=== PATIENT | male | born 1975 | race African-American/Black ===

== ENCOUNTER 2018-12-09 17:46 | Inpatient (IN) | payer OTHER ==
[2018-12-09] MEDS ORDERED: ACETAMINOPHEN 325 MG TABLET PO ONE (18:13)
[2018-12-09] MEDS ORDERED: NORMAL SALINE 1000 ML 1,000 ML IV ONE ×2 (18:13→18:45)
[2018-12-09 18:43] LABS: ABSOLUTE LYMPHOCYTES (AUTO) 0.9 10^3/uL (0.5-4.7); ABSOLUTE MONOCYTES (AUTO) 1.4 10^3/uL (0.1-1.4); ABSOLUTE NEUT (AUTO) 13.8 10^3/uL (1.7-8.2); BASOPHILS % (AUTO) 0.1 % (0-2); HEMATOCRIT 17.2 % (37.9-51.0); LYMPHOCYTES % (AUTO) 5.8 % (13-45); MEAN CORPUSCULAR HEMOGLOBIN 23.7 pg (27.0-33.4); MEAN CORPUSCULAR HGB CONC 31.1 g/dL (32.0-36.0); MEAN CORPUSCULAR VOLUME 76 fl (80-97); MONOCYTES % (AUTO) 8.6 % (3-13); PLATELET COUNT 261 10^3/uL (150-450); RED BLOOD COUNT 2.26 10^6/uL (4.35-5.55); RED CELL DISTRIBUTION WIDTH 19.7 % (11.5-14.0); SEGMENTED NEUTROPHILS % (AUTO) 85.5 % (42-78); TOTAL CELLS COUNTED % (AUTO) 100 %; WHITE BLOOD COUNT 16.2 10^3/uL (4.0-10.5)
[2018-12-09] MEDS ORDERED: VANCOMYCIN HCL INJ 1000 MG VIAL IV ONE (18:45)
[2018-12-09] MEDS ORDERED: PIPERACILLIN/TAZOBACTAM 4.5 GM VIAL IV ONE (18:45)
[2018-12-09 18:47] LABS: HEMOGLOBIN 5.4 g/dL (13.5-17.0)
[2018-12-09] MEDS ORDERED: NORMAL SALINE 250 ML IV PRN (18:49)
--- NOTE | 2018-12-09 18:51 | ER Document Report ---
ED General - General Chief Complaint: Foot Pain Stated Complaint: LEFT FOOT PAIN Time Seen by Provider: 12/09/18 18:13 - HPI Notes: Patient is a 43-year-old male with a history of poorly controlled diabetes who presents to the emergency department for evaluation of fever and increased pain in his left foot. 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 He states that over the last month his foot has been incredibly swollen. Over the last 2 weeks he is felt ill, felt hot and cold. He said some nausea but no emesis. He is had increased pain and swelling in his left foot as well. He states that his sugar was "low today" at 125. - Related Data Allergies/Adverse Reactions: No Known Allergies Allergy (Verified 12/09/18 17:49) Past Medical History - General Information source: Patient - Social History Smoking Status: Never Smoker Chew tobacco use (# tins/day): No Frequency of alcohol use: None Drug Abuse: None Family History: Malignancy Patient has suicidal ideation: No Patient has homicidal ideation: No - Past Medical History Cardiac Medical History: Reports: Hx Hypertension Pulmonary Medical History: Reports: Hx Pneumonia Denies: Hx Tuberculosis Neurological Medical History: Denies: Hx Seizures Endocrine Medical History: Reports: Hx Diabetes Mellitus Type 2 - Insulin- dependent Renal/ Medical History: Denies: Hx Peritoneal Dialysis Past Surgical History: Reports: Hx Orthopedic Surgery - R Great toe removal August 2009. Denies: Hx Pacemaker - Immunizations Hx Diphtheria, Pertussis, Tetanus Vaccination: No Hx Pneumococcal Vaccination: 06/27/11 Review of Systems - Review of Systems Constitutional: See HPI EENT: No symptoms reported Cardiovascular: No symptoms reported Respiratory: No symptoms reported Gastrointestinal: No symptoms reported Genitourinary: No symptoms reported Musculoskeletal: See HPI Skin: See HPI Neurological/Psychological: No symptoms reported Physical Exam - Vital signs Vitals: BP Pulse Ox 126/71 H 99 12/09/18 18:00 12/09/18 18:00 - Notes Notes: This is a febrile, tachycardic 43-year-old male who appears his stated age in no acute distress. Vital signs reviewed, please refer to chart. Head is normocephalic, atraumatic. Pupils equal round, reactive to light. Neck is sup ple without meningismus. Heart is regular rate and rhythm. Lungs are clear to auscultation bilaterally. Abdomen is soft, nontender, normoactive bowel sounds throughout. Examination of the right lower extremity yields a BKA with callused and thickened skin, skin breakdown without significant surrounding induration, erythema, or fluctuance. Some tunneling noted. Examination of the left lower e xtremity examination of the left lower extremity yields a severe amount of edema to the entire left foot. He has an ulcerated area on his anterior ankle that is approximately 3 x 4 cm, multiple smaller ulcerations over the dorsum of the entire foot. It is extremely foul-smelling. He has diminished sensation to the entire area to light touch. There is chronic appearing skin thickening on the lateral aspect of the foot. Course - Re-evaluation Re-evalutation: 12/09/18 18:52 Patient presented to the emergency department for evaluation. In route via EMS, he was found to have a 101.6 temperature, a blood pressure 105/87, heart rate of 130. Sepsis protocol initiated. First blood result back was a hemoglobin of under 6. Blood blank orders placed, orders placed for transfusion of 2 units. It is clear that the patient's foot is severely infected. Cultures are pending, as is lactate. He is given Zosyn and vancomycin, we will continue to monitor. 12/09/18 21:41 Dr. Naranjo came and evaluated the patient. From a surgical standpoint he believes he is stable to stay in this facility, but of course not stable for surgery at this time. I spoke with Dr. Rain, he will come down and evaluate the patient for admission. - Vital Signs Vital signs: Temp Pulse Resp BP Pulse Ox 98.4 F 103 H 16 114/66 99 12/09/18 21:11 12/09/18 21:11 12/09/18 21:12 12/09/18 21:12 12/09/18 21:12 - Laboratory Result Diagrams: 12/09/18 18:07 12/09/18 18:07 Laboratory results interpreted by me: 12/09/18 12/09/18 12/09/18 18:07 18:07 18:07 WBC 16.2 H RBC 2.26 L Hgb 5.4 L Hct 17.2 L MCV 76 L MCH 23.7 L MCHC 31.1 L RDW 19.7 H Seg Neutrophils % 85.5 H Lymphocytes % 5.8 L Absolute Neutrophils 13.8 H PT 18.6 H Sodium 134.3 L Potassium 3.5 L BUN 22 H Glucose 138 H Total Bilirubin 2.8 H Direct Bilirubin 1.6 H Albumin 2.6 L Crossmatch 12/09/18 19:17 WBC RBC Hgb Hct MCV MCH MCHC RDW Seg Neutrophils % Lymphocytes % Absolute Neutrophils PT Sodium Potassium BUN Glucose Total Bilirubin Direct Bilirubin Albumin Crossmatch See Detail - Diagnostic Test Radiology reviewed: Reports reviewed Radiology results interpreted by me: 12/09/18 22:03 Chest X-Ray 12/09/18 18:44 IMPRESSION: NO ACUTE RADIOGRAPHIC FINDING IN THE CHEST. Foot X-Ray 12/09/18 18:44 IMPRESSION: Markedly abnormal appearance of the foot; the appearance of subcutaneous gas with extensive osseous erosions and periosteal reaction is cons istent with chronic osteomyelitis. - EKG Interpretation by Me Additional EKG results interpreted by me: 12/09/18 22:04 Extremely abnormal baseline, secondary to chills and rigors. Sinus mechanism with a rate of [address] bpm[address] Normal axis. Nonspecific ST changes. Again limited by baseline abnormalities. Discharge - Discharge Clinical Impression: Severe anemia Sepsis Qualifiers: Sepsis type: sepsis due to unspecified organism Sepsis acute organ dysfunction status: without acute organ dysfunction Qualified Code(s): A41.9 - Sepsis, unspecified organism Osteomyelitis Qualifiers: Osteomyelitis type: chronic, with draining sinus Osteomyelitis location: foot Laterality: left Qualified Code(s): M86.472 - Chronic osteomyelitis with draining sinus, left ankle and foot Condition: Stable Disposition: ADMITTED INPATIENT Admitting Provider: Briseyda (Hospitalist) Unit Admitted: [facility]
[2018-12-09 18:59] LABS: ALBUMIN 2.6 g/dL (3.5-5.0); ALKALINE PHOSPHATASE 42 U/L (38-126); ANION GAP 12 (5-19); ASPARTATE AMINO TRANSFERASE 40 U/L (17-59); BILIRUBIN,DIRECT 1.6 mg/dL (0.0-0.4); BILIRUBIN,TOTAL 2.8 mg/dL (0.2-1.3); BLOOD UREA NITROGEN 22 mg/dL (7-20); CALCIUM 8.6 mg/dL (8.4-10.2); CARBON DIOXIDE 22 mmol/L (22-30); CHLORIDE 100 mmol/L (98-107); GLUCOSE 138 mg/dL (75-110); POTASSIUM 3.5 mmol/L (3.6-5.0); TOTAL PROTEIN 7.2 g/dL (6.3-8.2)
[2018-12-09 19:01] LABS: INTERNATIONAL RATION (INR) 1.54; PROTHROMBIN TIME 18.6 SEC (11.4-15.4)
--- NOTE | 2018-12-09 19:26 | RADIOLOGY REPORT (SQ) ---
EXAM DESCRIPTION: FOOT LEFT 2 VIEWS COMPLETED DATE/TIME: 12/09/2018 7:03 pm REASON FOR STUDY: eval for osteo COMPARISON: None. NUMBER OF VIEWS: Two views. TECHNIQUE: AP and lateral radiographic images acquired of the left foot. LIMITATIONS: None. FINDINGS: MINERALIZATION: Normal. BONES: There is extensive erosion of the 1st ray to include the base and head of the 1st metatarsal w ith no visualized great toe phalanges (possibly on the basis of previous amputation. Robust perioste al reaction is seen about the residual 1st metatarsal. Abnormal morphology of the 5th metatarsal may be posttraumatic. Periosteal reaction is seen of the 2nd and 4th metatarsal diaphyses. Significant tarsal erosions. JOINTS: The visualized joint spaces appear narrowed. SOFT TISSUES: Diffuse circumferential soft tissue edema with subcutaneous gas. OTHER: No other significant finding. IMPRESSION: Markedly abnormal appearance of the foot; the appearance of subcutaneous gas with extens ju osseous erosions and periosteal reaction is consistent with chronic osteomyelitis. TECHNICAL DOCUMENTATION: JOB ID: [id number] [employer]- All Rights Reserved Reading location - IP/workstation name: [email or web address]
--- NOTE | 2018-12-09 19:33 | RADIOLOGY REPORT (SQ) ---
EXAM DESCRIPTION: CHEST SINGLE VIEW COMPLETED DATE/TIME: 12/09/2018 7:03 pm REASON FOR STUDY: sepsis eval COMPARISON: 06/18/2011 EXAM PARAMETERS: NUMBER OF VIEWS: One view. TECHNIQUE: Single frontal radiographic view of the chest acquired. RADIATION DOSE: NA LIMITATIONS: None. FINDINGS: LUNGS AND PLEURA: No opacities, masses or pneumothorax. No pleural effusion. MEDIASTINUM AND HILAR STRUCTURES: No masses. Contour normal. HEART AND VASCULAR STRUCTURES: Heart normal in size. Normal vasculature. BONES: No acute findings. HARDWARE: None in the chest. OTHER: No other significant finding. IMPRESSION: NO ACUTE RADIOGRAPHIC FINDING IN THE CHEST. TECHNICAL DOCUMENTATION: JOB ID: [id number] [employer]- All Rights Reserved Reading location - IP/workstation name: [email or web address]
[2018-12-09 19:37] LABS: VENOUS BLOOD BASE EXCESS -1.2 mmol/L; VENOUS BLOOD HCO3 23.2 mmol/L (20-32); VENOUS BLOOD PCO2 37.5 mmHg (35-63); VENOUS BLOOD PH 7.41 (7.30-7.42)
--- NOTE | 2018-12-09 21:56 | PDOC CONSULTATION ---
Consultation Consult Date: 12/09/18 Provider Consulted: SYLVIA ZAPATA Consult reason:: Evaluate left foot infection and diabetic patient History of Present Illness Patient complains of: Generalized weakness and fever History of Present Illness: HANNAH CRUZ JR is a 43 year old male diabetic with history of right BKA due to diabetic foot infection in the past. He uses a right-sided prosthetic leg. He noted a cut to the bottom of his left foot couple of months ago that he self treated with antibiotic ointment. In the past couple of weeks he has noticed marked swelling of his left foot along with serous drainage. Patient has had profound diarrhea over the past couple weeks. He has been experiencing fever with generalized weakness. He denies any blood per rectum. He denies any hematemesis. He denies any abdominal pain. he denies any alcohol abuse. Patient states that he has been noted with anemia in the past. Past Medical History Cardiac Medical History: Reports: Hypertension Pulmonary Medical History: Reports: Pneumonia Denies: Tuberculosis Neurological Medical History: Denies: Seizures Endocrine Medical History: Reports: Diabetes Mellitus Type 2 - Insulin-dependent Hematology: Reports: Anemia Past Surgical History Past Surgical History: Reports: Orthopedic Surgery - Right BKA several years ago. Left great toe amputation in the remote past. Denies: Pacemaker Social History Smoking Status: Never Smoker Frequency of Alcohol Use: None Hx Recreational Drug Use: No Hx Prescription Drug Abuse: No Family History Family History: Malignancy Parental Family History Reviewed: No Children Family History Reviewed: No Sibling(s) Family History Reviewed.: No Medication/Allergy Home Medications: Ferrous Sulfate [Feosol 325 Mg Tablet] 325 mg PO BID 06/27/11 Hum Insulin NPH/Reg Insulin Hm [Humulin 70-30 Pen] 20 unit SQ BID 06/27/11 Hydrocodone Bit/Acetaminophen [Vicodin 5-500 mg Tablet] 1 tab PO Q6 PRN 06/27/11 Insulin Lispro [Humalog] 0 unit SQ ACHS 06/27/11 Lisinopril [Prinivil] 20 mg PO DAILY 06/27/11 Pepcid 20 mg PO DAILY 06/29/11 Allergies/Adverse Reactions: No Known Allergies Allergy (Verified 12/09/18 17:49) Physical Exam General appearance: PRESENT: cooperative, disheveled, other - Patient appears ill but is able to provide a good history. Eye exam: PRESENT: conjunctiva pink Respiratory exam: PRESENT: clear to auscultation gino Cardiovascular exam: PRESENT: tachycardia GI/Abdominal exam: PRESENT: other - Soft, nondistended, nontender to palpation. Extremities exam: PRESENT: other - Right BKA stump with thickened skin and lichenification. Left foot with marked diffuse swelling with skin thickening extending to the lower leg. Several ulcerations weeping serous fluid. The foot is warm. Patient is status post left great toe amputation. Neurological exam: PRESENT: oriented to person, oriented to place, oriented to time, oriented to situation Psychiatric exam: PRESENT: anxious Results Laboratory Results: 12/09/18 18:07 12/09/18 18:07 12/09/18 12/09/18 12/09/18 18:07 18:07 19:17 WBC 16.2 H RBC 2.26 L Hgb 5.4 L Hct 17.2 L MCV 76 L MCH 23.7 L MCHC 31.1 L RDW 19.7 H Plt Count 261 Seg Neutrophils % 85.5 H Lymphocytes % 5.8 L Monocytes % 8.6 Eosinophils % 0.0 Basophils % 0.1 Absolute Neutrophils 13.8 H Absolute Lymphocytes 0.9 Absolute Monocytes 1.4 Absolute Eosinophils 0.0 Absolute Basophils 0.0 VBG pH VBG pCO2 VBG HCO3 VBG Base Excess Sodium 134.3 L Potassium 3.5 L Chloride 100 Carbon Dioxide 22 Anion Gap 12 BUN 22 H Creatinine 1.09 Est GFR ( Amer) > 60 Est GFR (Non-Af Amer) > 60 Glucose 138 H Lactic Acid 1.9 Calcium 8.6 Total Bilirubin 2.8 H AST 40 Alkaline Phosphatase 42 Total Protein 7.2 Albumin 2.6 L Blood Type Antibody Screen 12/09/18 12/09/18 19:17 19:17 WBC RBC Hgb Hct MCV MCH MCHC RDW Plt Count Seg Neutrophils % Lymphocytes % Monocytes % Eosinophils % Basophils % Absolute Neutrophils Absolute Lymphocytes Absolute Monocytes Absolute Eosinophils Absolute Basophils VBG pH 7.41 VBG pCO2 37.5 VBG HCO3 23.2 VBG Base Excess -1.2 Sodium Potassium Chloride Carbon Dioxide Anion Gap BUN Creatinine Est GFR ( Amer) Est GFR (Non-Af Amer) Glucose Lactic Acid Calcium Total Bilirubin AST Alkaline Phosphatase Total Protein Albumin Blood Type A POSITIVE Antibody Screen NEGATIVE Impressions: Chest X-Ray 12/09/18 18:44 IMPRESSION: NO ACUTE RADIOGRAPHIC FINDING IN THE CHEST. Foot X-Ray 12/09/18 18:44 IMPRESSION: Markedly abnormal appearance of the foot; the appearance of subcutaneous gas with extensive osseous erosions and periosteal reaction is consistent with chronic osteomyelitis. Assessment & Plan - Diagnosis (1) Osteomyelitis Qualifiers: Osteomyelitis type: chronic, with draining sinus Osteomyelitis location: foot Laterality: left Qualified Code(s): M86.472 - Chronic osteomyelitis with draining sinus, left ankle and foot Is this a current diagnosis for this admission?: Yes Plan: Of the left foot. Acute process superimposed on chronic process. With the appearance of the foot I do not think that his foot is salvageable. Patient will require a left below the knee amputation and with his chronic skin changes of his lower leg, stump will be difficult to heal. Prior to his surgery he will need aggressive resuscitation with transfusions, antibiotics, fluid resuscitation. Patient will be admitted to the hospitalist service for resuscitation tonight followed by surgery tomorrow.
[2018-12-09] MEDS ORDERED: ACETAMINOPHEN 325 MG TABLET PO PRN (22:13)
[2018-12-09] MEDS ORDERED: GLUCAGON,HUMAN RECOMB 1 MG INJ IM PRN (22:19)
[2018-12-09] MEDS ORDERED: DEXTROSE 40% GEL 15 GM TUBE PO PRN ×2 (22:19)
[2018-12-09] MEDS ORDERED: DEXTROSE 50%-WATER 25 GM/50 ML DISP.SYRIN IV PRN ×2 (22:19)
[2018-12-09] MEDS ORDERED: VANCOMYCIN HCL 0 MG in DEXTROSE 5%-WATER 250 ML IV NR (22:30)
[2018-12-09] MEDS ORDERED: PIPERACILLIN/TAZOBACTAM 3.375 GM VIAL IV PRN (22:37)
[2018-12-09] MEDS ORDERED: VANCOMYCIN HCL INJ 1000 MG VIAL IV PRN (22:37)
--- NOTE | 2018-12-09 22:39 | PDOC H&P ---
History of Present Illness Admission Date/PCP: 12/09/18 22:15 History of Present Illness: HANNAH CRUZ JR is a 43 year old male who is a poor historian with a history of insulin-dependent diabetes who was not an ideal regimen and who also has a history of a right BKA 7 years ago because his foot got infected who presents with several weeks of left foot swelling. He said that he had a cut on his foot they noticed a couple of months ago and he tried to treated himself with antibiotic ointment. It is progressed since then. He has had a lot of swelling in that foot. He has multiple oozing ulcers on the foot. He has diminished sensation in the foot. He apparently had a fever for EMS greater than 101 F. His hemoglobin was also noted to be substantially low, but he denies any history of melena, hematochezia, hematemesis, hematuria, or nosebleed. He said he is also been having a lot of diarrhea recently. He has not noted it to be particularly watery or bloody, just very loose. He does not have any abdominal pain. Surgery has already seen him in the ED. He is being admitted for stabilization prior to surgery. Past Medical History Cardiac Medical History: Reports: Hypertension Pulmonary Medical History: Reports: Pneumonia Denies: Tuberculosis Neurological Medical History: Denies: Seizures Endocrine Medical History: Reports: Diabetes Mellitus Type 2 - Insulin-dependent Hematology: Reports: Anemia Past Surgical History Past Surgical History: Reports: Orthopedic Surgery - R Great toe removal August 2009 Denies: Pacemaker Social History Smoking Status: Never Smoker Frequency of Alcohol Use: None Hx Recreational Drug Use: No Hx Prescription Drug Abuse: No Family History Family History: Malignancy Parental Family History Reviewed: Yes - Said he thinks 1 of his parents had diabetes Children Family History Reviewed: NA Sibling(s) Family History Reviewed.: Unknown Medication/Allergy Home Medications: Ferrous Sulfate [Feosol 325 Mg Tablet] 325 mg PO BID 06/27/11 Hum Insulin NPH/Reg Insulin Hm [Humulin 70-30 Pen] 20 unit SQ BID 06/27/11 Hydrocodone Bit/Acetaminophen [Vicodin 5-500 mg Tablet] 1 tab PO Q6 PRN 06/27/11 Insulin Lispro [Humalog] 0 unit SQ ACHS 06/27/11 Lisinopril [Prinivil] 20 mg PO DAILY 06/27/11 Pepcid 20 mg PO DAILY 06/29/11 Allergies/Adverse Reactions: No Known Allergies Allergy (Verified 12/09/18 17:49) Review of Systems All systems: reviewed and no additional remarkable complaints except as stated - All systems were reviewed and were negative except as noted in the HPI Physical Exam Vital Signs: Temp Pulse Resp BP Pulse Ox 98.4 F 101 H 20 123/77 100 12/09/18 21:11 12/09/18 22:20 12/09/18 22:20 12/09/18 22:01 12/09/18 22:20 Intake & Output 12/08/18 12/09/18 12/10/18 06:59 06:59 06:59 Intake Total 1000 Balance 1000 General appearance: PRESENT: cooperative, disheveled, mild distress, obese Head exam: PRESENT: atraumatic, normocephalic Eye exam: PRESENT: conjunctiva pale, EOMI, PERRLA. ABSENT: conjunctival injection, nystagmus, scleral icterus Ear exam: PRESENT: normal external ear exam Mouth exam: PRESENT: dry mucosa, neck supple Teeth exam: PRESENT: poor dentation Throat exam: ABSENT: post pharyngeal erythema Neck exam: PRESENT: full ROM. ABSENT: carotid bruit, JVD, lymphadenopathy, meningismus, tenderness, thyromegaly Respiratory exam: PRESENT: clear to auscultation gino, symmetrical, unlabored. ABSENT: accessory muscle use, chest wall tenderness, crackles, prolonged expiratory phas, rhonchi, tachypnea, wheezes Cardiovascular exam: PRESENT: +S1, +S2, tachycardia Pulses: PRESENT: normal carotid pulses Vascular exam: ABSENT: normal capillary refill - Delayed, left foot was warm GI/Abdominal exam: PRESENT: normal bowel sounds, soft. ABSENT: distended, guarding, rebound, tenderness Extremities exam: PRESENT: other - Right lower extremity has unremarkable BKA stump. Left lower extremity has thickening of the skin over the left foot that extends proximally to the ankle up the left leg. The right great toe has been surgically removed. There is profound swelling of the left foot. There are multiple ulcerated and weeping lesions of the left foot. He could not tell when I was touching his foot. Musculoskeletal exam: PRESENT: deformity - Previously mentioned BKA, right great toe amputation, and profound swelling of the left foot. ABSENT: tenderness Neurological exam: PRESENT: alert, awake, oriented to person, oriented to place, oriented to situation, CN II-XII grossly intact, motor sensory deficit - Diminished sensation in the left foot and left leg below the knee Psychiatric exam: PRESENT: flat affect Skin exam: PRESENT: erythema - Left foot, warm - Left foot, other - Previously mentioned numerous ulcerated places with weeping lesions on the left foot along with the chronic appearing skin changes on aspects of the left foot and the left leg below the knee Results Laboratory Results: 12/09/18 18:07 12/09/18 18:07 12/09/18 12/09/18 12/09/18 18:07 18:07 19:17 WBC 16.2 H RBC 2.26 L Hgb 5.4 L Hct 17.2 L MCV 76 L MCH 23.7 L MCHC 31.1 L RDW 19.7 H Plt Count 261 Seg Neutrophils % 85.5 H Lymphocytes % 5.8 L Monocytes % 8.6 Eosinophils % 0.0 Basophils % 0.1 Absolute Neutrophils 13.8 H Absolute Lymphocytes 0.9 Absolute Monocytes 1.4 Absolute Eosinophils 0.0 Absolute Basophils 0.0 VBG pH VBG pCO2 VBG HCO3 VBG Base Excess Sodium 134.3 L Potassium 3.5 L Chloride 100 Carbon Dioxide 22 Anion Gap 12 BUN 22 H Creatinine 1.09 Est GFR ( Amer) > 60 Est GFR (Non-Af Amer) > 60 Glucose 138 H Lactic Acid 1.9 Calcium 8.6 Total Bilirubin 2.8 H AST 40 Alkaline Phosphatase 42 Total Protein 7.2 Albumin 2.6 L Blood Type Antibody Screen 12/09/18 12/09/18 19:17 19:17 WBC RBC Hgb Hct MCV MCH MCHC RDW Plt Count Seg Neutrophils % Lymphocytes % Monocytes % Eosinophils % Basophils % Absolute Neutrophils Absolute Lymphocytes Absolute Monocytes Absolute Eosinophils Absolute Basophils VBG pH 7.41 VBG pCO2 37.5 VBG HCO3 23.2 VBG Base Excess -1.2 Sodium Potassium Chloride Carbon Dioxide Anion Gap BUN Creatinine Est GFR ( Amer) Est GFR (Non-Af Amer) Glucose Lactic Acid Calcium Total Bilirubin AST Alkaline Phosphatase Total Protein Albumin Blood Type A POSITIVE Antibody Screen NEGATIVE Impressions: Chest X-Ray 12/09/18 18:44 IMPRESSION: NO ACUTE RADIOGRAPHIC FINDING IN THE CHEST. Foot X-Ray 12/09/18 18:44 IMPRESSION: Markedly abnormal appearance of the foot; the appearance of subcutaneous gas with extensive osseous erosions and periosteal reaction is consistent with chronic osteomyelitis. Assessment and Plan - Diagnosis (1) Sepsis Qualifiers: Sepsis type: sepsis due to unspecified organism Sepsis acute organ dysfunction status: without acute organ dysfunction Qualified Code(s): A41.9 - Sepsis, unspecified organism Is this a current diagnosis for this admission?: Yes Plan: He got his fluid bolus in the ER and has been started on vancomycin and Zosyn. Blood cultures have been obtained. This is almost certainly due to a chronic progressive long-standing infection in the left foot. We will admit him to IM. No signs of acute organ dysfunction at this time. His INR was elevated but it was also elevated about the same level, around 1.5, when he was here in 2011. (2) Osteomyelitis Qualifiers: Osteomyelitis type: chronic, with draining sinus Osteomyelitis location: foot Laterality: left Qualified Code(s): M86.472 - Chronic osteomyelitis with draining sinus, left ankle and foot Is this a current diagnosis for this admission?: Yes Plan: The foot definitely does not look salvageable. I was initially going to order an MRI of the foot as well as vascular studies, but on further consideration I do not think it would change his management. Surgery is planning on taking him to the OR for an amputation once he is more medically stable. He is on antibiotics for the meantime until the infected material is removed. (3) Severe anemia Is this a current diagnosis for this admission?: Yes Plan: His MCV is low and he looks iron deficient. He has been noted to be anemic at this level before. He has had some blood ordered. He denies any evidence of bleeding. We will send a stool sample for occult blood. We will continue to monitor his hemoglobin and look for evidence of acute bleeding, but he has none at this time. (4) Diarrhea Qualifiers: Diarrhea type: unspecified type Qualified Code(s): R19.7 - Diarrhea, unspecified Is this a current diagnosis for this admission?: Yes Plan: We are going to send off a sample for C. difficile. - Time Time Spent with patient: 35 or more minutes - Inpatient Certification Based on my medical assessment, after consideration of the patient's comorbidities, presenting symptoms, or acuity I expect that the services needed warrant INPATIENT care.: Yes I certify that my determination is in accordance with my understanding of Medicare's requirements for reasonable and necessary INPATIENT services [42 CFR 412.3e].: Yes Medical Necessity: Need Close Monitoring Due to Risk of Patient Decompensation, Need For IV Fluids, Need For Continuous Telemetry Monitoring, Need for IV Antibiotics, Need for Surgery
[2018-12-09 22:43] LABS: AMORPHOUS SEDIMENT,URINE 1+ /HPF; APPEARANCE,URINE TURBID; BILIRUBIN,URINE SMALL (NEGATIVE); COLOR,URINE AMBER; GLUCOSE, URINE NEGATIVE (NEGATIVE); KETONES,URINE NEGATIVE (NEGATIVE); LEUKOCYTE ESTERASE,URINE NEGATIVE (NEGATIVE); NITRITE,URINE NEGATIVE (NEGATIVE); PROTEIN,URINE 100 mg/dL (NEGATIVE); URINE SPECIFIC GRAVITY 1.024
[2018-12-09] MEDS: NORMAL SALINE 1000 ML 1,000 ML IV PRN (23:32)
[2018-12-10] MEDS: ONDANSETRON HCL INJ/PF 4 MG/2 ML SDV IV PRN (01:49)
[2018-12-10] MEDS: PIPERACILLIN SODIUM/TAZOBACTAM 3.375 GM in NORMAL SALINE 100 ML IV SCH ×5 (01:51→23:42)
[2018-12-10] MEDS ORDERED: GLUCAGON,HUMAN RECOMB 1 MG INJ SUBCUT PRN (04:46)
[2018-12-10] MEDS ORDERED: DEXTROSE 40% GEL 15 GM TUBE PO PRN ×2 (04:46)
[2018-12-10] MEDS ORDERED: DEXTROSE 50%-WATER 25 GM/50 ML DISP.SYRIN IV PRN ×2 (04:46)
[2018-12-10] MEDS: HEPARIN SOD (PORCINE) 5,000 UNIT/ML 1 ML VIAL SUBCUT SCH ×3 (05:37→21:23)
[2018-12-10] MEDS ORDERED: VANCOMYCIN HCL 2,000 MG in DEXTROSE 5%-WATER 500 ML IV ONE (07:30)
[2018-12-10 08:48] LABS: HEMATOCRIT 25.9 % (37.9-51.0); MEAN CORPUSCULAR HEMOGLOBIN 24.7 pg (27.0-33.4); MEAN CORPUSCULAR HGB CONC 31.7 g/dL (32.0-36.0); MEAN CORPUSCULAR VOLUME 78 fl (80-97); PLATELET COUNT 302 10^3/uL (150-450); RED BLOOD COUNT 3.32 10^6/uL (4.35-5.55); RED CELL DISTRIBUTION WIDTH 19.4 % (11.5-14.0); WHITE BLOOD COUNT 19.9 10^3/uL (4.0-10.5)
[2018-12-10] MEDS: VANCOMYCIN HCL 1,250 MG in DEXTROSE 5%-WATER 250 ML IV SCH ×3 (08:49→21:23)
[2018-12-10 08:50] LABS: HEMOGLOBIN 8.2 g/dL (13.5-17.0)
[2018-12-10 09:08] LABS: ANION GAP 11 (5-19); BLOOD UREA NITROGEN 21 mg/dL (7-20); CALCIUM 8.5 mg/dL (8.4-10.2); CARBON DIOXIDE 21 mmol/L (22-30); CHLORIDE 105 mmol/L (98-107); GLUCOSE 141 mg/dL (75-110); POTASSIUM 3.4 mmol/L (3.6-5.0)
--- NOTE | 2018-12-10 09:15 | PDOC PROGRESS REPORT ---
Subjective Progress Note for:: 12/10/18 Subjective:: This is a 43-year-old male with a severe diabetic foot infection of the left foot. He has purulent material and gas extending from the tip of the foot all the way back to the ankle. The patient reports left foot pain, malaise, fatigue, subjective fevers and chills. He denies chest pain, shortness of breath, headache, blurry vision, melena, hematochezia, hematemesis, abdominal pain. Reason For Visit: SEPSIS, LLE OSTEMEYELITIS, ANEMIA Physical Exam Vital Signs: Temp Pulse Resp BP Pulse Ox 98.4 F 104 H 16 127/74 H 98 12/10/18 05:30 12/10/18 07:00 12/10/18 05:30 12/10/18 05:30 12/10/18 05:30 Intake & Output 12/09/18 12/10/18 12/11/18 06:59 06:59 06:59 Intake Total 2800 Output Total 400 Balance 2400 Weight 116.9 kg General appearance: PRESENT: obese Head exam: PRESENT: atraumatic, normocephalic Eye exam: PRESENT: EOMI, PERRLA Mouth exam: PRESENT: neck supple Teeth exam: PRESENT: poor dentation Neck exam: ABSENT: meningismus, tenderness, thyromegaly, tracheal deviation Respiratory exam: PRESENT: unlabored. ABSENT: chest wall tenderness, wheezes Cardiovascular exam: PRESENT: tachycardia - mild Pulses: PRESENT: normal radial pulses GI/Abdominal exam: PRESENT: soft. 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 Erythematous, crepitance noted, purulent drainage noted of the left remaining foot. Erythema and crepitance extends up to the ankle. Neurological exam: PRESENT: alert, awake, oriented to person, oriented to place, oriented to time, oriented to situation Psychiatric exam: PRESENT: depressed. ABSENT: agitated, anxious Focused psych exam: ABSENT: delusional Skin exam: PRESENT: erythema. ABSENT: cyanosis, jaundice Results Laboratory Results: 12/10/18 08:30 12/09/18 12/09/18 12/09/18 18:07 18:07 19:17 WBC 16.2 H RBC 2.26 L Hgb 5.4 L Hct 17.2 L MCV 76 L MCH 23.7 L MCHC 31.1 L RDW 19.7 H Plt Count 261 Seg Neutrophils % 85.5 H Lymphocytes % 5.8 L Monocytes % 8.6 Eosinophils % 0.0 Basophils % 0.1 Absolute Neutrophils 13.8 H Absolute Lymphocytes 0.9 Absolute Monocytes 1.4 Absolute Eosinophils 0.0 Absolute Basophils 0.0 VBG pH VBG pCO2 VBG HCO3 VBG Base Excess Sodium 134.3 L Potassium 3.5 L Chloride 100 Carbon Dioxide 22 Anion Gap 12 BUN 22 H Creatinine 1.09 Est GFR ( Amer) > 60 Est GFR (Non-Af Amer) > 60 Glucose 138 H Lactic Acid 1.9 Calcium 8.6 Total Bilirubin 2.8 H AST 40 Alkaline Phosphatase 42 Total Protein 7.2 Albumin 2.6 L Urine Color Urine Appearance Urine pH Ur Specific [place] Urine Protein Urine Glucose (UA) Urine Ketones Urine Blood Urine Nitrite Ur Leukocyte Esterase Stool Occult Blood Blood Type Antibody Screen 12/09/18 12/09/18 12/09/18 19:17 19:17 22:17 WBC RBC Hgb Hct MCV MCH MCHC RDW Plt Count Seg Neutrophils % Lymphocytes % Monocytes % Eosinophils % Basophils % Absolute Neutrophils Absolute Lymphocytes Absolute Monocytes Absolute Eosinophils Absolute Basophils VBG pH 7.41 VBG pCO2 37.5 VBG HCO3 23.2 VBG Base Excess -1.2 Sodium Potassium Chloride Carbon Dioxide Anion Gap BUN Creatinine Est GFR ( Amer) Est GFR (Non-Af Amer) Glucose Lactic Acid Calcium Total Bilirubin AST Alkaline Phosphatase Total Protein Albumin Urine Color [place] Urine Appearance TURBID Urine pH 5.0 Ur Specific [place] 1.024 Urine Protein 100 H Urine Glucose (UA) NEGATIVE Urine Ketones NEGATIVE Urine Blood SMALL H Urine Nitrite NEGATIVE Ur Leukocyte Esterase NEGATIVE Stool Occult Blood Blood Type A POSITIVE Antibody Screen NEGATIVE 12/09/18 12/10/18 22:17 08:30 WBC 19.9 H RBC 3.32 L Hgb 8.2 L D Hct 25.9 L MCV 78 L MCH 24.7 L MCHC 31.7 L RDW 19.4 H Plt Count 302 Seg Neutrophils % Lymphocytes % Monocytes % Eosinophils % Basophils % Absolute Neutrophils Absolute Lymphocytes Absolute Monocytes Absolute Eosinophils Absolute Basophils VBG pH VBG pCO2 VBG HCO3 VBG Base Excess Sodium Potassium Chloride Carbon Dioxide Anion Gap BUN Creatinine Est GFR ( Amer) Est GFR (Non-Af Amer) Glucose Lactic Acid Calcium Total Bilirubin AST Alkaline Phosphatase Total Protein Albumin Urine Color Urine Appearance Urine pH Ur Specific [place] Urine Protein Urine Glucose (UA) Urine Ketones Urine Blood Urine Nitrite Ur Leukocyte Esterase Stool Occult Blood NEGATIVE Blood Type Antibody Screen Impressions: Chest X-Ray 12/09/18 18:44 IMPRESSION: NO ACUTE RADIOGRAPHIC FINDING IN THE CHEST. Foot X-Ray 12/09/18 18:44 IMPRESSION: Markedly abnormal appearance of the foot; the appearance of subcutaneous gas with extensive osseous erosions and periosteal reaction is consistent with chronic osteomyelitis. Assessment & Plan - Diagnosis (1) Diabetic foot infection Is this a current diagnosis for this admission?: Yes (2) Osteomyelitis Qualifiers: Osteomyelitis type: chronic, with draining sinus Osteomyelitis location: fo ot Laterality: left Qualified Code(s): M86.472 - Chronic osteomyelitis with draining sinus, left ankle and foot Is this a current diagnosis for this admission?: Yes - Plan Summary Plan Summary: 43 y/o M with a severe diabetic foot infection. He has purulent material and cre pitance throughout the remaining foot. I have recommended BKA to resolve his sepsis. The pt has agreed to this. Risks/benefits discussed, informed consent obtained, and all questions answered.
[2018-12-10] MEDS ORDERED: HYDROMORPHONE HCL INJ/PF 2 MG/ML AMPULE IV ONE (10:45)
[2018-12-10] MEDS: NORMAL SALINE 1000 ML 1,000 ML IV PRN (10:46)
--- NOTE | 2018-12-10 11:06 | PDOC PROGRESS REPORT ---
Subjective Progress Note for:: 12/10/18 Subjective:: This is unfortunate 43 years old black male patient with past medical history of hypertension, obesity, type 2 diabetes mellitus, anemia presented with chief complaint of left foot pain and swelling. Patient reports this about 2 months ago he had a small cut and he treated himself with topical antibiotics. Of note patient had right BKA about 7 years ago. He states the wound is progressively increasing and draining. Patient has leukocytosis and fever of 101. X-ray of the foot reported as markedly abnormal appearance of the foot; the appearance of subcutaneous gas with extensive osseous erosions and periosteal reaction is consistent with chronic osteomyelitis. Clinically looks patient has acute on chronic osteomyelitis. Because of the fever and leukocytosis. Patient evaluated by surgical team and does not seem medical management will salvage the left foot and recommended left BKA. Patient also found to have profound anemia with hemoglobin of 5.4 for which she transfused with 2 units of packed RBC. Reason For Visit: SEPSIS, LLE OSTEMEYELITIS, ANEMIA Physical Exam Vital Signs: Temp Pulse Resp BP Pulse Ox 98.4 F 104 H 16 127/74 H 98 12/10/18 05:30 12/10/18 07:00 12/10/18 05:30 12/10/18 05:30 12/10/18 05:30 Intake & Output 12/09/18 12/10/18 12/11/18 06:59 06:59 06:59 Intake Total 2800 Output Total 400 Balance 2400 Weight 116.9 kg General appearance: PRESENT: no acute distress Head exam: PRESENT: atraumatic Mouth exam: PRESENT: dry mucosa Teeth exam: PRESENT: poor dentation Neck exam: ABSENT: carotid bruit, JVD, lymphadenopathy, thyromegaly Respiratory exam: PRESENT: clear to auscultation gino. ABSENT: rales, rhonchi, wheezes Cardiovascular exam: PRESENT: RRR. ABSENT: diastolic murmur, rubs, systolic murmur GI/Abdominal exam: PRESENT: normal bowel sounds, soft. ABSENT: distended, guarding, mass, organolmegaly, rebound, tenderness Neurological exam: PRESENT: alert, awake, oriented to person, oriented to place, oriented to time, oriented to situation Psychiatric exam: PRESENT: depressed Results Laboratory Results: 12/10/18 08:30 12/10/18 08:30 0812/09/18 12/09/18 18:07 18:07 19:17 WBC 16.2 H RBC 2.26 L Hgb 5.4 L Hct 17.2 L MCV 76 L MCH 23.7 L MCHC 31.1 L RDW 19.7 H Plt Count 261 Seg Neutrophils % 85.5 H Lymphocytes % 5.8 L Monocytes % 8.6 Eosinophils % 0.0 Basophils % 0.1 Absolute Neutrophils 13.8 H Absolute Lymphocytes 0.9 Absolute Monocytes 1.4 Absolute Eosinophils 0.0 Absolute Basophils 0.0 VBG pH VBG pCO2 VBG HCO3 VBG Base Excess Sodium 134.3 L Potassium 3.5 L Chloride 100 Carbon Dioxide 22 Anion Gap 12 BUN 22 H Creatinine 1.09 Est GFR ( Amer) > 60 Est GFR (Non-Af Amer) > 60 Glucose 138 H Lactic Acid 1.9 Calcium 8.6 Total Bilirubin 2.8 H AST 40 Alkaline Phosphatase 42 Total Protein 7.2 Albumin 2.6 L Urine Color Urine Appearance Urine pH Ur Specific [place] Urine Protein Urine Glucose (UA) Urine Ketones Urine Blood Urine Nitrite Ur Leukocyte Esterase Stool Occult Blood Blood Type Antibody Screen 12/09/18 12/09/18 12/09/18 19:17 19:17 22:17 WBC RBC Hgb Hct MCV MCH MCHC RDW Plt Count Seg Neutrophils % Lymphocytes % Monocytes % Eosinophils % Basophils % Absolute Neutrophils Absolute Lymphocytes Absolute Monocytes Absolute Eosinophils Absolute Basophils VBG pH 7.41 VBG pCO2 37.5 VBG HCO3 23.2 VBG Base Excess -1.2 Sodium Potassium Chloride Carbon Dioxide Anion Gap BUN Creatinine Est GFR ( Amer) Est GFR (Non-Af Amer) Glucose Lactic Acid Calcium Total Bilirubin AST Alkaline Phosphatase Total Protein Albumin Urine Color [place] Urine Appearance TURBID Urine pH 5.0 Ur Specific [place] 1.024 Urine Protein 100 H Urine Glucose (UA) NEGATIVE Urine Ketones NEGATIVE Urine Blood SMALL H Urine Nitrite NEGATIVE Ur Leukocyte Esterase NEGATIVE Stool Occult Blood Blood Type A POSITIVE Antibody Screen NEGATIVE 12/09/18 12/10/18 12/10/18 22:17 08:30 08:30 WBC 19.9 H RBC 3.32 L Hgb 8.2 L D Hct 25.9 L MCV 78 L MCH 24.7 L MCHC 31.7 L RDW 19.4 H Plt Count 302 Seg Neutrophils % Lymphocytes % Monocytes % Eosinophils % Basophils % Absolute Neutrophils Absolute Lymphocytes Absolute Monocytes Absolute Eosinophils Absolute Basophils VBG pH VBG pCO2 VBG HCO3 VBG Base Excess Sodium 136.9 L Potassium 3.4 L Chloride 105 Carbon Dioxide 21 L Anion Gap 11 BUN 21 H Creatinine 1.15 Est GFR ( Amer) > 60 Est GFR (Non-Af Amer) > 60 Glucose 141 H Lactic Acid Calcium 8.5 Total Bilirubin AST Alkaline Phosphatase Total Protein Albumin Urine Color Urine Appearance Urine pH Ur Specific [place] Urine Protein Urine Glucose (UA) Urine Ketones Urine Blood Urine Nitrite Ur Leukocyte Esterase Stool Occult Blood NEGATIVE Blood Type Antibody Screen Impressions: Chest X-Ray 12/09/18 18:44 IMPRESSION: NO ACUTE RADIOGRAPHIC FINDING IN THE CHEST. Foot X-Ray 12/09/18 18:44 IMPRESSION: Markedly abnormal appearance of the foot; the appearance of subcutaneous gas with extensive osseous erosions and periosteal reaction is consistent with chronic osteomyelitis. Assessment and Plan - Diagnosis (1) Acute on chronic osteomyelitis of L foot Is this a current diagnosis for this admission?: Yes Plan: Patient has been started empirically on Zosyn and vancomycin. Patient scheduled for left BKA this afternoon. (2) Microcytic anemia Is this a current diagnosis for this admission?: Yes Plan: No history of external bleeding. Stool for occult blood requested by the on-call physician. Patient transfused 2 units of packed RBC. (3) Type 2 diabetes mellitus Is this a current diagnosis for this admission?: Yes Plan: I will determine his hemoglobin A1c status to evaluate the degree of diabetes control. We will put him on sliding scale. (4) Hypertension Qualifiers: Hypertension type: essential hypertension Qualified Code(s): I10 - Essential (primary) hypertension Is this a current diagnosis for this admission?: Yes Plan: Review his home medications and adjust accordingly.
[2018-12-10] MEDS ORDERED: LIDOCAINE 1% INJ-PF (10 MG/ML) 30 ML SDV ONE (12:53)
[2018-12-10] MEDS ORDERED: BUPIVACAINE HCL 0.25 % INJ/PF (2.5 MG/1 ML) 30 ML VIAL ONE (12:54)
[2018-12-10] MEDS ORDERED: MIDAZOLAM 2 MG/2 ML INJ ONE (13:39)
[2018-12-10] MEDS ORDERED: PROPOFOL INJ 200 MG/20 ML VIAL IV ONE ×2 (13:39→16:58)
--- NOTE | 2018-12-10 14:39 | EKG REPORT ---
SEVERITY:- ABNORMAL ECG - SINUS TACHYCARDIA ARTIFACTS NOTED : Confirmed by: Biju Henson 10-Dec-2018 14:38:29
[2018-12-10] MEDS ORDERED: MEPERIDINE HCL/PF INJ 25 MG/1 ML DISP.SYRIN IV PRN (14:57)
[2018-12-10] MEDS ORDERED: OXYCODONE-ACETAMINOPHEN 5-325 MG TABLET PO PRN ×2 (14:57)
[2018-12-10] MEDS ORDERED: DIPHENHYDRAMINE HCL 50 MG/ML VIAL IV PRN (14:57)
[2018-12-10] MEDS ORDERED: PROMETHAZINE HCL INJ 25 MG/1 ML VIAL IV PRN (14:57)
[2018-12-10] MEDS ORDERED: FENTANYL CITRATE INJ/PF 100 MCG/2 ML AMPUL IV PRN ×3 (14:57)
[2018-12-10] MEDS ORDERED: MORPHINE SULFATE 10 MG/ML INJ IV PRN (14:57)
[2018-12-10] MEDS: INSULIN LISPRO 100 UNIT/ML 3 ML VIAL SUBCUT SCH ×3 (16:08→21:33)
[2018-12-10] MEDS ORDERED: FENTANYL CITRATE INJ/PF 100 MCG/2 ML AMPUL ONE (17:04)
[2018-12-10] MEDS: MORPHINE SULFATE 10 MG/ML INJ IV PRN (19:29)
[2018-12-10] MEDS: HYDROCODONE/ACETAMINOPHEN 10-325 MG TABLET PO PRN ×2 (19:30→23:41)
[2018-12-10] MEDS: GABAPENTIN 300 MG CAPSULE PO SCH (21:23)
[2018-12-11] MEDS: NORMAL SALINE 1000 ML 1,000 ML IV PRN ×3 (02:14→23:41)
[2018-12-11] MEDS: MORPHINE SULFATE 10 MG/ML INJ IV PRN ×2 (02:17→19:43)
[2018-12-11] MEDS: GABAPENTIN 300 MG CAPSULE PO SCH ×3 (05:14→21:40)
[2018-12-11] MEDS: HEPARIN SOD (PORCINE) 5,000 UNIT/ML 1 ML VIAL SUBCUT SCH ×3 (05:14→21:40)
[2018-12-11] MEDS: VANCOMYCIN HCL 1,250 MG in DEXTROSE 5%-WATER 250 ML IV SCH ×3 (05:14→21:36)
[2018-12-11] MEDS: HYDROCODONE/ACETAMINOPHEN 10-325 MG TABLET PO PRN ×3 (05:15→19:43)
[2018-12-11 05:17] LABS: HEMATOCRIT 23.6 % (37.9-51.0); MEAN CORPUSCULAR HEMOGLOBIN 25.2 pg (27.0-33.4); MEAN CORPUSCULAR HGB CONC 32.2 g/dL (32.0-36.0); MEAN CORPUSCULAR VOLUME 78 fl (80-97); PLATELET COUNT 311 10^3/uL (150-450); RED BLOOD COUNT 3.02 10^6/uL (4.35-5.55); RED CELL DISTRIBUTION WIDTH 19.1 % (11.5-14.0); WHITE BLOOD COUNT 16.4 10^3/uL (4.0-10.5)
[2018-12-11] MEDS: PIPERACILLIN SODIUM/TAZOBACTAM 3.375 GM in NORMAL SALINE 100 ML IV SCH ×4 (05:19→23:40)
[2018-12-11 05:24] LABS: HEMOGLOBIN 7.6 g/dL (13.5-17.0)
[2018-12-11 05:29] LABS: ANION GAP 8 (5-19); BLOOD UREA NITROGEN 21 mg/dL (7-20); CALCIUM 8.1 mg/dL (8.4-10.2); CARBON DIOXIDE 23 mmol/L (22-30); CHLORIDE 106 mmol/L (98-107); CHOLESTEROL 96.25 mg/dL (0-200); GLUCOSE 181 mg/dL (75-110); POTASSIUM 3.6 mmol/L (3.6-5.0); TRIGLYCERIDES 196 mg/dL (<150)
[2018-12-11 05:41] LABS: DIRECT LDL < 30 mg/dL (<100); VLDL CHOLESTEROL 39.2 mg/dL (10-31)
[2018-12-11 07:39] LABS: ERYTHROCYTE SEDIMENTATION RATE > 120 mm/hr (0-15)
[2018-12-11] MEDS: INSULIN LISPRO 100 UNIT/ML 3 ML VIAL SUBCUT SCH ×4 (08:06→21:40)
--- NOTE | 2018-12-11 09:35 | PDOC PROGRESS REPORT ---
Subjective Progress Note for:: 12/11/18 Subjective:: Feels well. No complaints Reason For Visit: SEPSIS, LLE OSTEMEYELITIS, ANEMIA Physical Exam Vital Signs: Temp Pulse Resp BP Pulse Ox 98.0 F 91 18 123/76 98 12/11/18 07:27 12/11/18 07:27 12/11/18 07:27 12/11/18 07:27 12/11/18 07:27 Intake & Output 12/10/18 12/11/18 12/12/18 06:59 06:59 06:59 Intake Total 2800 4600 Output Total 400 1270 Balance 2400 3330 Weight 116.9 kg 114.2 kg General appearance: PRESENT: no acute distress Respiratory exam: PRESENT: clear to auscultation gino Cardiovascular exam: PRESENT: RRR Extremities exam: PRESENT: other - Stump dressings intact. Results Laboratory Results: 12/11/18 04:42 12/11/18 04:42 12/11/18 12/11/18 04:42 04:42 WBC 16.4 H RBC 3.02 L Hgb 7.6 L Hct 23.6 L MCV 78 L MCH 25.2 L MCHC 32.2 RDW 19.1 H Plt Count 311 Sodium 137.4 Potassium 3.6 Chloride 106 Carbon Dioxide 23 Anion Gap 8 BUN 21 H Creatinine 1.18 Est GFR ( Amer) > 60 Est GFR (Non-Af Amer) > 60 Glucose 181 H Calcium 8.1 L Triglycerides 196 H Cholesterol 96.25 LDL Cholesterol Direct < 30 VLDL Cholesterol 39.2 H HDL Cholesterol 13 L Impressions: Chest X-Ray 12/09/18 18:44 IMPRESSION: NO ACUTE RADIOGRAPHIC FINDING IN THE CHEST. Foot X-Ray 12/09/18 18:44 IMPRESSION: Markedly abnormal appearance of the foot; the appearance of subcutaneous gas with extensive osseous erosions and periosteal reaction is consistent with chronic osteomyelitis. Assessment & Plan - Diagnosis (1) Osteomyelitis Qualifiers: Osteomyelitis type: chronic, with draining sinus Osteomyelitis location: foot Laterality: left Qualified Code(s): M86.472 - Chronic osteomyelitis with draining sinus, left ankle and foot Is this a current diagnosis for this admission?: Yes Plan: Status post left below the knee amputation. Patient looks good postoperatively. We will plan to take the dressings down tomorrow.
[2018-12-11] MEDS ORDERED: NORMAL SALINE 250 ML IV PRN ×2 (12:38)
--- NOTE | 2018-12-11 12:38 | PDOC PROGRESS REPORT ---
Subjective Progress Note for:: 12/11/18 Subjective:: This is unfortunate 43 years old black male patient with past medical history of hypertension, obesity, type 2 diabetes mellitus, anemia presented with chief complaint of left foot pain and swelling. Patient reports this about 2 months ago he had a small cut and he treated himself with topical antibiotics. Of note patient had right BKA about 7 years ago. He states the wound is progressively increasing and draining. Patient has leukocytosis and fever of 101. X-ray of the foot reported as markedly abnormal appearance of the foot; the appearance of subcutaneous gas with extensive osseous erosions and periosteal reaction is consistent with chronic osteomyelitis. Clinically looks patient has acute on chronic osteomyelitis. Because of the fever and leukocytosis. Patient evaluated by surgical team and does not seem medical management will salvage the left foot and recommended left BKA. Patient also found to have profound anemia with hemoglobin of 5.4 for which she transfused with 2 units of packed RBC. 12/11/2018: Patient seen and examined while resting in bed. He does not have any fever nausea or vomiting. He complains of pain at the surgical site. His labs reviewed at admission his hemoglobin was 5.4 and after 2 units of PRBC increased to 8.2 today it is 7.6. His ESR is 120. I will transfuse with 1 unit of PRBC and I will discontinue Zosyn and vancomycin after 24 hours since the septic focus has been removed. Reason For Visit: SEPSIS, LLE OSTEMEYELITIS, ANEMIA Physical Exam Vital Signs: Temp Pulse Resp BP Pulse Ox 97.9 F 91 20 136/81 H 97 12/11/18 10:58 12/11/18 10:58 12/11/18 10:58 12/11/18 10:58 12/11/18 10:58 Intake & Output 12/10/18 12/11/18 12/12/18 06:59 06:59 06:59 Intake Total 2800 4600 Output Total 400 1270 Balance 2400 3330 Weight 116.9 kg 114.2 kg General appearance: PRESENT: no acute distress Head exam: PRESENT: atraumatic Eye exam: PRESENT: conjunctiva pale Teeth exam: PRESENT: poor dentation Neck exam: ABSENT: carotid bruit, JVD, lymphadenopathy, thyromegaly Respiratory exam: PRESENT: clear to auscultation gino. ABSENT: rales, rhonchi, wheezes Cardiovascular exam: PRESENT: RRR. ABSENT: diastolic murmur, rubs, systolic murmur GI/Abdominal exam: PRESENT: normal bowel sounds, soft. ABSENT: distended, guarding, mass, organolmegaly, rebound, tenderness Neurological exam: PRESENT: alert, oriented to person, oriented to place, oriented to time, oriented to situation Results Laboratory Results: 12/11/18 04:42 12/11/18 04:42 12/11/18 12/11/18 04:42 04:42 WBC 16.4 H RBC 3.02 L Hgb 7.6 L Hct 23.6 L MCV 78 L MCH 25.2 L MCHC 32.2 RDW 19.1 H Plt Count 311 Sodium 137.4 Potassium 3.6 Chloride 106 Carbon Dioxide 23 Anion Gap 8 BUN 21 H Creatinine 1.18 Est GFR ( Amer) > 60 Est GFR (Non-Af Amer) > 60 Glucose 181 H Calcium 8.1 L Triglycerides 196 H Cholesterol 96.25 LDL Cholesterol Direct < 30 VLDL Cholesterol 39.2 H HDL Cholesterol 13 L Impressions: Chest X-Ray 12/09/18 18:44 IMPRESSION: NO ACUTE RADIOGRAPHIC FINDING IN THE CHEST. Foot X-Ray 12/09/18 18:44 IMPRESSION: Markedly abnormal appearance of the foot; the appearance of subcutaneous gas with extensive osseous erosions and periosteal reaction is consistent with chronic osteomyelitis. Assessment and Plan - Diagnosis (1) Acute on chronic osteomyelitis of L foot Is this a current diagnosis for this admission?: Yes Plan: Status post left BKA. He had a smooth postoperative course. I will discontinue vancomycin and Zosyn in the next 24 hours. (2) Microcytic anemia Is this a current diagnosis for this admission?: Yes Plan: His latest hemoglobin is 7.6. I will transfuse him with 1 unit of packed RBC. (3) Type 2 diabetes mellitus Is this a current diagnosis for this admission?: Yes Plan: His hemoglobin A1c 6.2. (4) Hypertension Qualifiers: Hypertension type: essential hypertension Qualified Code(s): I10 - Essential (primary) hypertension Is this a current diagnosis for this admission?: Yes Plan: Review his home medications and adjust accordingly.
[2018-12-11 14:29] LABS: VANCOMYCIN,TROUGH 32.6 ug/mL (5.0-20.0)
--- NOTE | 2018-12-11 15:18 | Operative Report ---
Nonrecallable Operative Report DATE OF SURGERY: 12/10/18 PREOPERATIVE DIAGNOSIS: Septic, left diabetic foot infection POSTOPERATIVE DIAGNOSIS: Same as above OPERATION: Left below-knee amputation SURGEON: ROYCE ROCHE ANESTHESIA: GA TISSUE REMOVED OR ALTERED: Left below-knee amputation COMPLICATIONS: none apparent ESTIMATED BLOOD LOSS: 100cc PROCEDURE: Drains/implants: 15 [place] round Bill drain. Procedure in detail: After informed consent was obtained, the patient was brought into the operating room and laid in the supine position. The area of the left lower extremity was prepped and draped in a normal sterile fashion. The leg was marked. The anterior resection margin was marked at 4 fingerbreadths below the tibial tuberosity. Another 5 fingerbreadths below that the posterior flap was marked. An incision was created through the skin with a 10 blade scalpel. This created the anterior portion and the posterior flap, down to the fascia. Hemostasis was achieved using electrocautery. Next the muscles of the anterior compartment were divided, exposing the tibia. Once the tibia was exposed a Leida clamp was passed behind it, a lap sponge was passed with a Leida clamp, and the lap sponge was used for retraction purposes. Next the fibula was exposed, continuing laterally with the anterior compartment dissection. Once the fibula was exposed, it was cleared away using electrocautery and blunt dissection. Large bone cutters were used to divide the fibula. Next, the tibia was divided using a reciprocating bone saw. A 45 degree notch was cut from the anterior portion of the tibia. The tibia and fibula were then rotated medially. Bovie electrocautery was used to divide the muscles adherent to the tibia and fibula. The neurovascular bundle was encountered. The arterial supply was ligated using 2-0 Vicryl suture in simple fashion. The nerve was identified, isolated, and divided proximally, under tension. The posterior flap was then completed, and the leg was passed off the field and sent to pathology. Next attention was turned to debridement of the anterior compartment and posterior compartment. The muscle bellies were debrided away, in an effort to leave just enough muscle to provide adequate cushion, but also allow closure of the posterior flap. A 15 [place] round Bill drain was placed into the muscular flap, brought out through a separate stab incision, and sutured into place. Next, the fascia of the posterior flap was sutured to the anterior fascia using 0 Vicryl suture in [id number] fashion. Once this was completed, the subcutaneous tissues were closed using 0 Vicryl suture in simple interrupted fashion. The overlying skin was closed using skin lis. A dressing was placed, and the procedure was concluded. All sponge, instrument, and needle counts were correct x2. Condition: Stable.
[2018-12-11 21:50] LABS: VANCOMYCIN,TROUGH 26.4 ug/mL (5.0-20.0)
[2018-12-12] MEDS: HYDROCODONE/ACETAMINOPHEN 10-325 MG TABLET PO PRN ×2 (01:21→18:03)
[2018-12-12] MEDS: MORPHINE SULFATE 10 MG/ML INJ IV PRN (01:22)
[2018-12-12 05:11] LABS: HEMATOCRIT 26.2 % (37.9-51.0); HEMOGLOBIN 8.3 g/dL (13.5-17.0); MEAN CORPUSCULAR HEMOGLOBIN 25.3 pg (27.0-33.4); MEAN CORPUSCULAR HGB CONC 31.8 g/dL (32.0-36.0); MEAN CORPUSCULAR VOLUME 80 fl (80-97); PLATELET COUNT 363 10^3/uL (150-450); RED BLOOD COUNT 3.29 10^6/uL (4.35-5.55); WHITE BLOOD COUNT 18.9 10^3/uL (4.0-10.5)
[2018-12-12] MEDS: GABAPENTIN 300 MG CAPSULE PO SCH ×3 (05:37→21:20)
[2018-12-12] MEDS: VANCOMYCIN HCL 1,250 MG in DEXTROSE 5%-WATER 250 ML IV SCH (05:37)
[2018-12-12] MEDS: HEPARIN SOD (PORCINE) 5,000 UNIT/ML 1 ML VIAL SUBCUT SCH ×3 (05:37→21:20)
[2018-12-12 05:38] LABS: ANION GAP 8 (5-19); BLOOD UREA NITROGEN 15 mg/dL (7-20); CALCIUM 7.7 mg/dL (8.4-10.2); CARBON DIOXIDE 23 mmol/L (22-30); CHLORIDE 107 mmol/L (98-107); GLUCOSE 157 mg/dL (75-110); POTASSIUM 3.8 mmol/L (3.6-5.0)
[2018-12-12] MEDS: PIPERACILLIN SODIUM/TAZOBACTAM 3.375 GM in NORMAL SALINE 100 ML IV SCH ×3 (06:33→18:01)
[2018-12-12] MEDS: INSULIN LISPRO 100 UNIT/ML 3 ML VIAL SUBCUT SCH ×4 (09:33→21:20)
--- NOTE | 2018-12-12 11:54 | PDOC PROGRESS REPORT ---
Subjective Progress Note for:: 12/12/18 Subjective:: This is unfortunate 43 years old black male patient with past medical history of hypertension, obesity, type 2 diabetes mellitus, anemia presented with chief complaint of left foot pain and swelling. Patient reports this about 2 months ago he had a small cut and he treated himself with topical antibiotics. Of note patient had right BKA about 7 years ago. He states the wound is progressively increasing and draining. Patient has leukocytosis and fever of 101. X-ray of the foot reported as markedly abnormal appearance of the foot; the appearance of subcutaneous gas with extensive osseous erosions and periosteal reaction is consistent with chronic osteomyelitis. Clinically looks patient has acute on chronic osteomyelitis. Because of the fever and leukocytosis. Patient evaluated by surgical team and does not seem medical management will salvage the left foot and recommended left BKA. Patient also found to have profound anemia with hemoglobin of 5.4 for which she transfused with 2 units of packed RBC. 12/11/2018: Patient seen and examined while resting in bed. He does not have any fever nausea or vomiting. He complains of pain at the surgical site. His labs reviewed at admission his hemoglobin was 5.4 and after 2 units of PRBC increased to 8.2 today it is 7.6. His ESR is 120. I will transfuse with 1 unit of PRBC and I will discontinue Zosyn and vancomycin after 24 hours since the septic focus has been removed. 12/12/2018: Patient seen and examined while resting in bed. He is awake alert oriented. He reports this the pain at the surgical site is improving. He does not have fever, nausea or vomiting. He eats well. His white cell count slightly increased. He is 2 bottles of blood cultures are positive for gram- positive cocci in chains. The final report of the blood cultures pending. And blood culture repeat is ordered. I will keep his antibiotics until the final report of the blood culture. Reason For Visit: SEPSIS, LLE OSTEMEYELITIS, ANEMIA Physical Exam Vital Signs: Temp Pulse Resp BP Pulse Ox 97.8 F 90 18 147/82 H 96 12/12/18 03:59 12/12/18 07:16 12/12/18 07:16 12/12/18 07:16 12/12/18 07:16 Intake & Output 12/11/18 12/12/18 12/13/18 06:59 06:59 06:59 Intake Total 4600 4362 Output Total 1270 1380 Balance 3330 2982 Weight 114.2 kg 119.3 kg General appearance: PRESENT: no acute distress Head exam: PRESENT: atraumatic Teeth exam: PRESENT: poor dentation Neck exam: ABSENT: carotid bruit, JVD, lymphadenopathy, thyromegaly Respiratory exam: PRESENT: clear to auscultation gino. ABSENT: rales, rhonchi, wheezes GI/Abdominal exam: PRESENT: normal bowel sounds, soft. ABSENT: distended, guarding, mass, organolmegaly, rebound, tenderness Neurological exam: PRESENT: alert, awake, oriented to person, oriented to place, oriented to time, oriented to situation Results Laboratory Results: 12/12/18 04:33 12/12/18 04:33 12/09/18 12/11/18 12/12/18 19:17 13:42 04:33 WBC 18.9 H RBC 3.29 L Hgb 8.3 L Hct 26.2 L MCV 80 MCH 25.3 L MCHC 31.8 L RDW 19.0 H Plt Count 363 Sodium Potassium Chloride Carbon Dioxide Anion Gap BUN Creatinine 1.16 Est GFR ( Amer) > 60 Est GFR (Non-Af Amer) > 60 Glucose Calcium Blood Type A POSITIVE Antibody Screen NEGATIVE 12/12/18 04:33 WBC RBC Hgb Hct MCV MCH MCHC RDW Plt Count Sodium 138.0 Potassium 3.8 Chloride 107 Carbon Dioxide 23 Anion Gap 8 BUN 15 Creatinine 1.14 Est GFR ( Amer) > 60 Est GFR (Non-Af Amer) > 60 Glucose 157 H Calcium 7.7 L Blood Type Antibody Screen Impressions: Chest X-Ray 12/09/18 18:44 IMPRESSION: NO ACUTE RADIOGRAPHIC FINDING IN THE CHEST. Foot X-Ray 12/09/18 18:44 IMPRESSION: Markedly abnormal appearance of the foot; the appearance of subcutaneous gas with extensive osseous erosions and periosteal reaction is co nsistent with chronic osteomyelitis. Assessment and Plan - Diagnosis (1) Gram-positive cocci bacteremia Is this a current diagnosis for this admission?: Yes Plan: Final report of the blood cultures pending. I will continue his antibiotics. (2) Acute on chronic osteomyelitis of L foot Is this a current diagnosis for this admission?: Yes Plan: Status post left BKA. He had a smooth postoperative course. I will discontinue vancomycin and Zosyn in the next 24 hours. (3) Microcytic anemia Is this a current diagnosis for this admission?: Yes Plan: His latest hemoglobin is 7.6. I will transfuse him with 1 unit of packed RBC. (4) Type 2 diabetes mellitus Is this a current diagnosis for this admission?: Yes Plan: His hemoglobin A1c 6.2. (5) Hypertension Qualifiers: Hypertension type: essential hypertension Qualified Code(s): I10 - Essential (primary) hypertension Is this a current diagnosis for this admission?: Yes Plan: Review his home medications and adjust accordingly.
[2018-12-12] MEDS: NORMAL SALINE 1000 ML 1,000 ML IV PRN ×2 (12:14→22:10)
[2018-12-13] MEDS: PIPERACILLIN SODIUM/TAZOBACTAM 3.375 GM in NORMAL SALINE 100 ML IV SCH ×5 (00:58→23:43)
[2018-12-13] MEDS: HYDROCODONE/ACETAMINOPHEN 10-325 MG TABLET PO PRN ×3 (03:49→14:58)
[2018-12-13 05:20] LABS: HEMATOCRIT 25.5 % (37.9-51.0); HEMOGLOBIN 8.1 g/dL (13.5-17.0); MEAN CORPUSCULAR HEMOGLOBIN 25.4 pg (27.0-33.4); MEAN CORPUSCULAR VOLUME 80 fl (80-97); PLATELET COUNT 451 10^3/uL (150-450); RED CELL DISTRIBUTION WIDTH 19.3 % (11.5-14.0); WHITE BLOOD COUNT 14.8 10^3/uL (4.0-10.5)
[2018-12-13] MEDS: HEPARIN SOD (PORCINE) 5,000 UNIT/ML 1 ML VIAL SUBCUT SCH ×3 (05:25→22:26)
[2018-12-13] MEDS: GABAPENTIN 300 MG CAPSULE PO SCH ×3 (05:25→22:26)
[2018-12-13] MEDS: VANCOMYCIN HCL 1,250 MG in DEXTROSE 5%-WATER 250 ML IV SCH ×2 (05:26→18:33)
[2018-12-13 05:43] LABS: ANION GAP 7 (5-19); BLOOD UREA NITROGEN 11 mg/dL (7-20); CALCIUM 7.6 mg/dL (8.4-10.2); CARBON DIOXIDE 23 mmol/L (22-30); CHLORIDE 107 mmol/L (98-107); GLUCOSE 182 mg/dL (75-110); POTASSIUM 3.7 mmol/L (3.6-5.0)
[2018-12-13 05:49] LABS: ABSOLUTE LYMPHOCYTES# (MANUAL) 1.6 10^3/uL (0.5-4.7); ABSOLUTE MONOCYTES # (MANUAL) 1.5 10^3/uL (0.1-1.4); BAND NEUTROPHILS % (MANUAL) 3 % (3-5); BASOPHILS % (MANUAL) 0 % (0-2); EOSINOPHILS % (MANUAL) 6 % (0-6); LYMPHOCYTES % (MANUAL) 11 % (13-45); MONOCYTES % (MANUAL) 10 % (3-13); SEGMENTED NEUTROPHILS % (MAN) 70 % (42-78); TOTAL CELLS COUNTED 100
[2018-12-13 05:50] LABS: ANISOCYTOSIS 2+; PLATELET COMMENT INCREASED; POLYCHROMASIA SLIGHT; TOXIC GRANULATION SLIGHT
[2018-12-13] MEDS: INSULIN LISPRO 100 UNIT/ML 3 ML VIAL SUBCUT SCH ×4 (08:25→22:26)
[2018-12-13] MEDS: NORMAL SALINE 1000 ML 1,000 ML IV PRN ×2 (10:36→23:43)
--- NOTE | 2018-12-13 12:37 | PDOC PROGRESS REPORT ---
Subjective Progress Note for:: 12/13/18 Subjective:: This is unfortunate 43 years old black male patient with past medical history of hypertension, obesity, type 2 diabetes mellitus, anemia presented with chief complaint of left foot pain and swelling. Patient reports this about 2 months ago he had a small cut and he treated himself with topical antibiotics. Of note patient had right BKA about 7 years ago. He states the wound is progressively increasing and draining. Patient has leukocytosis and fever of 101. X-ray of the foot reported as markedly abnormal appearance of the foot; the appearance of subcutaneous gas with extensive osseous erosions and periosteal reaction is consistent with chronic osteomyelitis. Clinically looks patient has acute on chronic osteomyelitis. Because of the fever and leukocytosis. Patient evaluated by surgical team and does not seem medical management will salvage the left foot and recommended left BKA. Patient also found to have profound anemia with hemoglobin of 5.4 for which she transfused with 2 units of packed RBC. 12/11/2018: Patient seen and examined while resting in bed. He does not have any fever nausea or vomiting. He complains of pain at the surgical site. His labs reviewed at admission his hemoglobin was 5.4 and after 2 units of PRBC increased to 8.2 today it is 7.6. His ESR is 120. I will transfuse with 1 unit of PRBC and I will discontinue Zosyn and vancomycin after 24 hours since the septic focus has been removed. 12/12/2018: Patient seen and examined while resting in bed. He is awake alert oriented. He reports this the pain at the surgical site is improving. He does not have fever, nausea or vomiting. He eats well. His white cell count slightly increased. He is 2 bottles of blood cultures are positive for gram- positive cocci in chains. The final report of the blood cultures pending. And blood culture repeat is ordered. I will keep his antibiotics until the final report of the blood culture. 12/13/2018: Patient seen while enjoying his breakfast. He does not have any nausea vomiting fever. His white cell count is trending down. Repeat blood culture result is pending. Reason For Visit: SEPSIS, LLE OSTEMEYELITIS, ANEMIA Physical Exam Vital Signs: Temp Pulse Resp BP Pulse Ox 98.2 F 84 16 142/72 H 97 12/13/18 07:41 12/13/18 07:41 12/13/18 07:41 12/13/18 07:41 12/13/18 07:41 Intake & Output 12/12/18 12/13/18 12/14/18 06:59 06:59 06:59 Intake Total 4362 3970 1240 Output Total 1380 1910 500 Balance 2982 2060 740 Weight 119.3 kg 119.3 kg General appearance: PRESENT: no acute distress Head exam: PRESENT: atraumatic Eye exam: PRESENT: conjunctiva pink Mouth exam: PRESENT: dry mucosa Teeth exam: PRESENT: poor dentation Neck exam: ABSENT: carotid bruit, JVD, lymphadenopathy, thyromegaly Respiratory exam: PRESENT: clear to auscultation gino. ABSENT: rales, rhonchi, wheezes Cardiovascular exam: PRESENT: RRR. ABSENT: diastolic murmur, rubs, systolic murmur GI/Abdominal exam: PRESENT: normal bowel sounds, soft. ABSENT: distended, guarding, mass, organolmegaly, rebound, tenderness Neurological exam: PRESENT: alert, oriented to person, oriented to place, oriented to time, oriented to situation Results Laboratory Results: 12/13/18 05:00 12/13/18 05:00 12/13/18 12/13/18 05:00 05:00 WBC 14.8 H RBC 3.20 L Hgb 8.1 L Hct 25.5 L MCV 80 MCH 25.4 L MCHC 32.0 RDW 19.3 H Plt Count 451 H Seg Neutrophils % Not Reportable Lymphocytes % Not Reportable Monocytes % Not Reportable Eosinophils % Not Reportable Basophils % Not Reportable Absolute Neutrophils Not Reportable Absolute Lymphocytes Not Reportable Absolute Monocytes Not Reportable Absolute Eosinophils Not Reportable Absolute Basophils Not Reportable Sodium 137.3 Potassium 3.7 Chloride 107 Carbon Dioxide 23 Anion Gap 7 BUN 11 Creatinine 1.08 Est GFR ( Amer) > 60 Est GFR (Non-Af Amer) > 60 Glucose 182 H Calcium 7.6 L Impressions: Chest X-Ray 12/09/18 18:44 IMPRESSION: NO ACUTE RADIOGRAPHIC FINDING IN THE CHEST. Foot X-Ray 12/09/18 18:44 IMPRESSION: Markedly abnormal appearance of the foot; the appearance of subcutaneous gas with extensive osseous erosions and periosteal reaction is consistent with chronic osteomyelitis. Assessment and Plan - Diagnosis (1) Gram-positive cocci bacteremia Is this a current diagnosis for this admission?: Yes Plan: Final report of the blood cultures pending. I will continue his antibiotics. (2) Acute on chronic osteomyelitis of L foot Is this a current diagnosis for this admission?: Yes Plan: Status post left BKA. He had a smooth postoperative course. I will discontinue vancomycin and Zosyn in the next 24 hours. (3) Microcytic anemia Is this a current diagnosis for this admission?: Yes Plan: His latest hemoglobin is 7.6. I will transfuse him with 1 unit of packed RBC. (4) Type 2 diabetes mellitus Is this a current diagnosis for this admission?: Yes Plan: His hemoglobin A1c 6.2. (5) Hypertension Qualifiers: Hypertension type: essential hypertension Qualified Code(s): I10 - Essential (primary) hypertension Is this a current diagnosis for this admission?: Yes Plan: Review his home medications and adjust accordingly.
[2018-12-13] MEDS: INSULIN GLARGINE,HUM.REC.ANLOG 1,000 UNIT/10 ML VIAL SUBCUT SCH (22:27)
[2018-12-14] MEDS: HYDROCODONE/ACETAMINOPHEN 10-325 MG TABLET PO PRN ×3 (03:44→22:31)
[2018-12-14] MEDS: ONDANSETRON HCL INJ/PF 4 MG/2 ML SDV IV PRN (05:10)
[2018-12-14] MEDS: PIPERACILLIN SODIUM/TAZOBACTAM 3.375 GM in NORMAL SALINE 100 ML IV SCH ×4 (05:16→23:30)
[2018-12-14] MEDS: GABAPENTIN 300 MG CAPSULE PO SCH ×3 (05:17→22:31)
[2018-12-14] MEDS: VANCOMYCIN HCL 1,250 MG in DEXTROSE 5%-WATER 250 ML IV SCH ×2 (05:17→18:11)
[2018-12-14] MEDS: HEPARIN SOD (PORCINE) 5,000 UNIT/ML 1 ML VIAL SUBCUT SCH ×3 (05:17→22:30)
--- NOTE | 2018-12-14 07:52 | PDOC PROGRESS REPORT ---
Subjective Progress Note for:: 12/13/18 Subjective:: pains left BKA stump Reason For Visit: SEPSIS, LLE OSTEMEYELITIS, ANEMIA Physical Exam Vital Signs: Temp Pulse Resp BP Pulse Ox 97.7 F 83 20 139/78 H 97 12/14/18 03:39 12/14/18 03:39 12/14/18 03:39 12/14/18 03:39 12/14/18 03:39 Intake & Output 12/13/18 12/14/18 12/15/18 06:59 06:59 06:59 Intake Total 3970 3602 Output Total 1910 2345 Balance 0 1257 Weight 119.3 kg 122.4 kg Exam: Dressings changed. Stump is still swollen but incision looks good Results Laboratory Results: 12/13/18 05:00 12/13/18 05:00 Impressions: Chest X-Ray 12/09/18 18:44 IMPRESSION: NO ACUTE RADIOGRAPHIC FINDING IN THE CHEST. Foot X-Ray 12/09/18 18:44 IMPRESSION: Markedly abnormal appearance of the foot; the appearance of subc utaneous gas with extensive osseous erosions and periosteal reaction is consistent with chronic osteomyelitis. Assessment & Plan - Time Time Spent with patient: 15-24 minutes - Inpatient Certification Medical Necessity: Need for IV Antibiotics - Plan Summary Plan Summary: New compression dressings applied. Will D/C drain tomorrow Continue IV antibiotics
[2018-12-14] MEDS: INSULIN LISPRO 100 UNIT/ML 3 ML VIAL SUBCUT SCH ×4 (08:38→22:30)
[2018-12-14] MEDS: NORMAL SALINE 1000 ML 1,000 ML IV PRN (12:10)
--- NOTE | 2018-12-14 12:43 | PDOC PROGRESS REPORT ---
Subjective Progress Note for:: 12/14/18 Subjective:: This is unfortunate 43 years old black male patient with past medical history of hypertension, obesity, type 2 diabetes mellitus, anemia presented with chief complaint of left foot pain and swelling. Patient reports this about 2 months ago he had a small cut and he treated himself with topical antibiotics. Of note patient had right BKA about 7 years ago. He states the wound is progressively increasing and draining. Patient has leukocytosis and fever of 101. X-ray of the foot reported as markedly abnormal appearance of the foot; the appearance of subcutaneous gas with extensive osseous erosions and periosteal reaction is consistent with chronic osteomyelitis. Clinically looks patient has acute on chronic osteomyelitis. Because of the fever and leukocytosis. Patient evaluated by surgical team and does not seem medical management will salvage the left foot and recommended left BKA. Patient also found to have profound anemia with hemoglobin of 5.4 for which she transfused with 2 units of packed RBC. 12/11/2018: Patient seen and examined while resting in bed. He does not have any fever nausea or vomiting. He complains of pain at the surgical site. His labs reviewed at admission his hemoglobin was 5.4 and after 2 units of PRBC increased to 8.2 today it is 7.6. His ESR is 120. I will transfuse with 1 unit of PRBC and I will discontinue Zosyn and vancomycin after 24 hours since the septic focus has been removed. 12/12/2018: Patient seen and examined while resting in bed. He is awake alert oriented. He reports this the pain at the surgical site is improving. He does not have fever, nausea or vomiting. He eats well. His white cell count slightly increased. He is 2 bottles of blood cultures are positive for gram- positive cocci in chains. The final report of the blood cultures pending. And blood culture repeat is ordered. I will keep his antibiotics until the final report of the blood culture. 12/13/2018: Patient seen while enjoying his breakfast. He does not have any nausea vomiting fever. His white cell count is trending down. Repeat blood culture result is pending. 12/14/2018: No significant change overnight. No new complaint. Reason For Visit: SEPSIS, LLE OSTEMEYELITIS, ANEMIA Physical Exam Vital Signs: Temp Pulse Resp BP Pulse Ox 97.7 F 86 16 146/75 H 96 12/14/18 03:39 12/14/18 07:38 12/14/18 07:38 12/14/18 07:38 12/14/18 07:38 Intake & Output 12/13/18 12/14/18 12/15/18 06:59 06:59 06:59 Intake Total 3970 3602 237 Output Total 1910 2345 1010 Balance 2060 1257 -773 Weight 119.3 kg 122.4 kg General appearance: PRESENT: no acute distress Respiratory exam: PRESENT: clear to auscultation gino. ABSENT: rales, rhonchi, wheezes Cardiovascular exam: PRESENT: RRR. ABSENT: diastolic murmur, rubs, systolic murmur GI/Abdominal exam: PRESENT: normal bowel sounds, soft. ABSENT: distended, guarding, mass, organolmegaly, rebound, tenderness Neurological exam: PRESENT: alert, awake, oriented to person, oriented to place, oriented to time, oriented to situation Results Laboratory Results: 12/13/18 05:00 12/13/18 05:00 Impressions: Chest X-Ray 12/09/18 18:44 IMPRESSION: NO ACUTE RADIOGRAPHIC FINDING IN THE CHEST. Foot X-Ray 12/09/18 18:44 IMPRESSION: Markedly abnormal appearance of the foot; the appearance of subcutaneous gas with extensive osseous erosions and periosteal reaction is consistent with chronic osteomyelitis. Assessment and Plan - Diagnosis (1) Gram-positive cocci bacteremia Is this a current diagnosis for this admission?: Yes Plan: Final report of the blood cultures pending. I will continue his antibiotics. (2) Acute on chronic osteomyelitis of L foot Is this a current diagnosis for this admission?: Yes Plan: Status post left BKA. He had a smooth postoperative course. I will discontinue vancomycin and Zosyn in the next 24 hours. (3) Microcytic anemia Is this a current diagnosis for this admission?: Yes Plan: His latest hemoglobin is 7.6. I will transfuse him with 1 unit of packed RBC. (4) Type 2 diabetes mellitus Is this a current diagnosis for this admission?: Yes Plan: His hemoglobin A1c 6.2. (5) Hypertension Qualifiers: Hypertension type: essential hypertension Qualified Code(s): I10 - Essential (primary) hypertension Is this a current diagnosis for this admission?: Yes
[2018-12-14 18:03] LABS: VANCOMYCIN,TROUGH 17.7 ug/mL (5.0-20.0)
[2018-12-14] MEDS: INSULIN GLARGINE,HUM.REC.ANLOG 1,000 UNIT/10 ML VIAL SUBCUT SCH (22:30)
[2018-12-15] MEDS: GABAPENTIN 300 MG CAPSULE PO SCH ×3 (06:03→22:13)
[2018-12-15] MEDS: VANCOMYCIN HCL 1,250 MG in DEXTROSE 5%-WATER 250 ML IV SCH ×2 (06:03→18:40)
[2018-12-15] MEDS: PIPERACILLIN SODIUM/TAZOBACTAM 3.375 GM in NORMAL SALINE 100 ML IV SCH ×4 (06:03→23:50)
[2018-12-15] MEDS: HEPARIN SOD (PORCINE) 5,000 UNIT/ML 1 ML VIAL SUBCUT SCH ×3 (06:03→22:11)
[2018-12-15] MEDS: NORMAL SALINE 1000 ML 1,000 ML IV PRN ×2 (07:44→16:25)
[2018-12-15] MEDS: INSULIN LISPRO 100 UNIT/ML 3 ML VIAL SUBCUT SCH ×4 (08:35→22:11)
--- NOTE | 2018-12-15 09:58 | PDOC DISCHARGE SUMMARY ---
General - Admit/Disc Date/PCP Admission Date/Primary Care Provider: 12/09/18 22:15 Discharge Date: 12/15/18 - Discharge Diagnosis (1) Gram-positive cocci bacteremia Is this a current diagnosis for this admission?: Yes (2) Acute on chronic osteomyelitis of L foot Is this a current diagnosis for this admission?: Yes (3) Microcytic anemia Is this a current diagnosis for this admission?: Yes (4) Type 2 diabetes mellitus Is this a current diagnosis for this admission?: Yes (5) Hypertension Is this a current diagnosis for this admission?: Yes - Additional Information Resuscitation Status: Full Code Home Medications: No Home Medications 12/10/18 History of Present Illness History of Present Illness: HANNAH CRUZ JR is a 43 year old male who is a poor historian with a history of insulin-dependent diabetes who was not an ideal regimen and who also has a history of a right BKA 7 years ago because his foot got infected who presents with several weeks of left foot swelling. He said that he had a cut on his foot they noticed a couple of months ago and he tried to treated himself with antibiotic ointment. It is progressed since then. He has had a lot of swelling in that foot. He has multiple oozing ulcers on the foot. He has diminished sensation in the foot. He apparently had a fever for EMS greater than 101 F. His hemoglobin was also noted to be substantially low, but he denies any history of melena, hematochezia, hematemesis, hematuria, or nosebleed. He said he is also been having a lot of diarrhea recently. He has not noted it to be particularly watery or bloody, just very loose. He does not have any abdominal pain. Surgery has already seen him in the ED. He is being admitted for stabilization prior to surgery. Hospital Course Hospital Course: This is unfortunate 43 years old black male patient with past medical history of hypertension, obesity, type 2 diabetes mellitus, anemia presented with chief complaint of left foot pain and swelling. Patient reports this about 2 months ago he had a small cut and he treated himself with topical antibiotics. Of note patient had right BKA about 7 years ago. He states the wound is progressively increasing and draining. Patient has leukocytosis and fever of 101. X-ray of the foot reported as markedly abnormal appearance of the foot; the appearance of subcutaneous gas with extensive osseous erosions and periosteal reaction is consistent with chronic osteomyelitis. Clinically looks patient has acute on chronic osteomyelitis. Because of the fever and leukocytosis. Patient evaluated by surgical team and does not seem medical management will salvage the left foot and recommended left BKA. Patient also found to have profound anemia with hemoglobin of 5.4 for which she transfused with 2 units of packed RBC. 12/11/2018: Patient seen and examined while resting in bed. He does not have any fever nausea or vomiting. He complains of pain at the surgical site. His labs reviewed at admission his hemoglobin was 5.4 and after 2 units of PRBC increased to 8.2 today it is 7.6. His ESR is 120. I will transfuse with 1 unit of PRBC and I will discontinue Zosyn and vancomycin after 24 hours since the septic focus has been removed. 12/12/2018: Patient seen and examined while resting in bed. He is awake alert oriented. He reports this the pain at the surgical site is improving. He does not have fever, nausea or vomiting. He eats well. His white cell count slightly increased. He is 2 bottles of blood cultures are positive for gram- positive cocci in chains. The final report of the blood cultures pending. And blood culture repeat is ordered. I will keep his antibiotics until the final report of the blood culture. 12/13/2018: Patient seen while enjoying his breakfast. He does not have any nausea vomiting fever. His white cell count is trending down. Repeat blood culture result is pending. 12/14/2018: No significant change overnight. No new complaint. 12/15/2018: Patient seen resting in bed comfortably. He is awake alert oriented he is not in pain or distress. I talked this morning to Dr. Marcano who cleared him for discharge once compressing dressing applied. He wants him to have a follow-up at the surgical clinic in 1 or 2 weeks. His wound is clean and heali ng. His vital signs are unremarkable. His hemoglobin maintained at 8. I will send him home with iron sulfate, lisinopril and carvedilol. He needs follow-up with his primary care physician in 1 week. Physical Exam Vital Signs: Temp Pulse Resp BP Pulse Ox 98.2 F 85 18 143/74 H 96 12/15/18 03:42 12/15/18 07:25 12/15/18 03:42 12/15/18 07:25 12/15/18 07:25 Intake & Output 12/14/18 12/15/18 12/16/18 06:59 06:59 06:59 Intake Total 3602 3793 250 Output Total 2347 1190 Balance 1257 -757 250 Weight 122.4 kg 121.5 kg General appearance: PRESENT: no acute distress Head exam: PRESENT: atraumatic Eye exam: PRESENT: conjunctiva pink Neck exam: ABSENT: carotid bruit, JVD, lymphadenopathy, thyromegaly Cardiovascular exam: PRESENT: RRR. ABSENT: diastolic murmur, rubs, systolic murmur GI/Abdominal exam: PRESENT: normal bowel sounds, soft. ABSENT: distended, guarding, mass, organolmegaly, rebound, tenderness Neurological exam: PRESENT: alert, awake, oriented to person, oriented to place, oriented to time, oriented to situation Results Laboratory Results: 12/13/18 05:00 12/14/18 17:30 12/14/18 17:30 Creatinine 0.95 Est GFR ( Amer) > 60 Est GFR (Non-Af Amer) > 60 Impressions: Chest X-Ray 12/09/18 18:44 IMPRESSION: NO ACUTE RADIOGRAPHIC FINDING IN THE CHEST. Foot X-Ray 12/09/18 18:44 IMPRESSION: Markedly abnormal appearance of the foot; the appearance of subcut aneous gas with extensive osseous erosions and periosteal reaction is consistent with chronic osteomyelitis. Qualifiers - * PATIENT BEING DISCHARGED WITH ANY OF THE FOLLOWING DIAGNOSIS: No Acute Heart Failure - Is this a Heart Failure Patient?: No LVEF < 40%?: No- if no continue to question #3 3. Anticoagulant therapy for permanect/persistent/paraoxysmal Afib or Aflutter: N/A
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
[2018-12-15] MEDS: INSULIN GLARGINE,HUM.REC.ANLOG 1,000 UNIT/10 ML VIAL SUBCUT SCH (22:12)
[2018-12-16] MEDS: VANCOMYCIN HCL 1,250 MG in DEXTROSE 5%-WATER 250 ML IV SCH ×2 (05:39→18:35)
[2018-12-16] MEDS: PIPERACILLIN SODIUM/TAZOBACTAM 3.375 GM in NORMAL SALINE 100 ML IV SCH ×3 (05:39→17:22)
[2018-12-16] MEDS: GABAPENTIN 300 MG CAPSULE PO SCH ×3 (05:40→22:14)
[2018-12-16] MEDS: HEPARIN SOD (PORCINE) 5,000 UNIT/ML 1 ML VIAL SUBCUT SCH ×3 (05:40→22:15)
[2018-12-16] MEDS: INSULIN LISPRO 100 UNIT/ML 3 ML VIAL SUBCUT SCH ×4 (08:58→22:14)
[2018-12-16] MEDS: HYDROCODONE/ACETAMINOPHEN 10-325 MG TABLET PO PRN (10:24)
[2018-12-16] MEDS: NORMAL SALINE 1000 ML 1,000 ML IV PRN (10:25)
--- NOTE | 2018-12-16 15:23 | Progress Note Acknowledgement ---
Progress Note Acknowledgement Progess Note Acknowledgement: I, the undersigned member of the medical staff with appropriate privileges and with supervisory authority over [ PAC ], a dependent practice allied health professional, acknowledge that I have reviewed the progress notes entered on this patient, and in my professional judgment believe that the assessment made and/or any care evidenced was appropriate
--- NOTE | 2018-12-16 15:37 | PDOC PROGRESS REPORT ---
Subjective Progress Note for:: 12/16/18 Subjective:: 12/16/2018 patient was seen today by physical therapy and discharge planning. Patient has been turned down by 4 different facilities for discharge planning. Physical therapy however feels that it is unsafe for the patient to be discharged home, due to his inability to walk. Physical therapy has recommended correction facility. Also some question about whether or not the patient is competent to be making his own medical decisions therefore I have ordered a psych eval for competency evaluation Reason For Visit: SEPSIS, LLE OSTEMEYELITIS, ANEMIA Physical Exam Vital Signs: Temp Pulse Resp BP Pulse Ox 98.2 F 81 18 147/74 H 95 12/16/18 11:34 12/16/18 14:00 12/16/18 03:26 12/16/18 11:34 12/16/18 11:34 Intake & Output 12/15/18 12/16/18 12/17/18 06:59 06:59 06:59 Intake Total 3793 2668 450 Output Total 4550 3700 3150 Balance -437 -3182 -2700 Weight 121.5 kg 119.7 kg General appearance: PRESENT: no acute distress, well-developed, well-nourished Respiratory exam: PRESENT: clear to auscultation gino. ABSENT: rales, rhonchi, wheezes Cardiovascular exam: PRESENT: RRR. ABSENT: diastolic murmur, rubs, systolic murmur Extremities exam: PRESENT: other - Patient's prosthesis is unsafe to use, and patient is very unstable. Patient will need adjustment to his prosthesis and further physical therapy from a rehab facility at time of discharge Results Laboratory Results: 12/13/18 05:00 12/14/18 17:30 12/09/18 22:17 Clean Catch Midstream Urine Culture - Final Aerococcus Urinae 12/09/18 19:17 Blood Blood Culture - Final Streptococcus Mitis Staphylococcus Hominis Impressions: Chest X-Ray 12/09/18 18:44 IMPRESSION: NO ACUTE RADIOGRAPHIC FINDING IN THE CHEST. Foot X-Ray 12/09/18 18:44 IMPRESSION: Markedly abnormal appearance of the foot; the appearance of subcutaneous gas with extensive osseous erosions and periosteal reaction is consistent with chronic osteomyelitis. Assessment and Plan - Diagnosis (1) Acute on chronic osteomyelitis of L foot Is this a current diagnosis for this admission?: Yes Plan: Status post left BKA. He had a smooth postoperative course. I will discontinue vancomycin and Zosyn in the next 24 hours. 12/16/2018 patient been on vancomycin since 12-13 and also on Zosyn. (2) Hypertension Qualifiers: Hypertension type: essential hypertension Qualified Code(s): I10 - Essential (primary) hypertension Is this a current diagnosis for this admission?: Yes Plan: Review his home medications and adjust accordingly. patient's blood pressures are running approximately 140/70 distantly patient was taking Coreg 12.5 mg every 12 hours and Prinivil 10 mg daily (3) Osteomyelitis Qualifiers: Osteomyelitis type: chronic, with draining sinus Osteomyelitis location: foot Laterality: left Qualified Code(s): M86.472 - Chronic osteomyelitis with draining sinus, left ankle and foot Is this a current diagnosis for this admission?: Yes Plan: The foot definitely does not look salvageable. I was initially going to order an MRI of the foot as well as vascular studies, but on further consideration I do not think it would change his management. Surgery is planning on taking him to the OR for an amputation once he is more medically stable. He is on antibiotics for the meantime until the infected material is removed. 12/16/2018 Patient went to the OR on 12/10/2018 and had a left below the knee amputation since then patient has had a drain at the operative site which is been pulled patient continues to be on IV antibiotics, afebrile, having no complications. Last WBC was 14.83 days ago this will be repeated (4) Sepsis Qualifiers: Sepsis type: sepsis due to unspecified organism Sepsis acute organ dysfunction status: without acute organ dysfunction Qualified Code(s): A41.9 - Sepsis, unspecified organism Is this a current diagnosis for this admission?: Yes Plan: He got his fluid bolus in the ER and has been started on vancomycin and Zosyn. Blood cultures have been obtained. This is almost certainly due to a chronic progressive long-standing infection in the left foot. We will admit him to IMCU. No signs of acute organ dysfunction at this time. His INR was elevated but it was also elevated about the same level, around 1.5, when he was here in 2011. 12/16/2018 patient remains afebrile vital signs are stable, patient has been on antibiotics now for 7 days - Time Time Spent with patient: 25-34 minutes - Patient according to physical therapy is unstable and unsafe to go home will need either correction or rehab
[2018-12-16 16:21] LABS: ALBUMIN 2.6 g/dL (3.5-5.0); ALKALINE PHOSPHATASE 63 U/L (38-126); ANION GAP 7 (5-19); ASPARTATE AMINO TRANSFERASE 30 U/L (17-59); BILIRUBIN,DIRECT 0.8 mg/dL (0.0-0.4); BILIRUBIN,TOTAL 1.2 mg/dL (0.2-1.3); BLOOD UREA NITROGEN 9 mg/dL (7-20); CALCIUM 8.1 mg/dL (8.4-10.2); CARBON DIOXIDE 32 mmol/L (22-30); CHLORIDE 100 mmol/L (98-107); GLUCOSE 161 mg/dL (75-110); POTASSIUM 3.7 mmol/L (3.6-5.0)
[2018-12-16 16:42] LABS: HEMATOCRIT 27.5 % (37.9-51.0); HEMOGLOBIN 8.8 g/dL (13.5-17.0); MEAN CORPUSCULAR HEMOGLOBIN 25.3 pg (27.0-33.4); MEAN CORPUSCULAR HGB CONC 31.9 g/dL (32.0-36.0); MEAN CORPUSCULAR VOLUME 79 fl (80-97); PLATELET COUNT 590 10^3/uL (150-450); RED BLOOD COUNT 3.47 10^6/uL (4.35-5.55); RED CELL DISTRIBUTION WIDTH 20.7 % (11.5-14.0); WHITE BLOOD COUNT 14.5 10^3/uL (4.0-10.5)
[2018-12-16 16:45] LABS: ABSOLUTE LYMPHOCYTES# (MANUAL) 1.3 10^3/uL (0.5-4.7); ABSOLUTE MONOCYTES # (MANUAL) 1.2 10^3/uL (0.1-1.4); BASOPHILS % (MANUAL) 0 % (0-2); EOSINOPHILS % (MANUAL) 0 % (0-6); LYMPHOCYTES % (MANUAL) 9 % (13-45); MONOCYTES % (MANUAL) 8 % (3-13); SEGMENTED NEUTROPHILS % (MAN) 83 % (42-78); TOTAL CELLS COUNTED 100
[2018-12-16 16:46] LABS: PLATELET COMMENT ADEQUATE; POIKILOCYTOSIS 1+; STOMATOCYTES 1+
[2018-12-16] MEDS: INSULIN GLARGINE,HUM.REC.ANLOG 1,000 UNIT/10 ML VIAL SUBCUT SCH (22:14)
[2018-12-17] MEDS: PIPERACILLIN SODIUM/TAZOBACTAM 3.375 GM in NORMAL SALINE 100 ML IV SCH (00:16)
[2018-12-17] MEDS: NORMAL SALINE 1000 ML 1,000 ML IV PRN (00:30)
[2018-12-17] MEDS: GABAPENTIN 300 MG CAPSULE PO SCH ×3 (05:48→23:17)
[2018-12-17] MEDS: VANCOMYCIN HCL 1,250 MG in DEXTROSE 5%-WATER 250 ML IV SCH (05:48)
[2018-12-17] MEDS: HEPARIN SOD (PORCINE) 5,000 UNIT/ML 1 ML VIAL SUBCUT SCH ×3 (05:48→23:17)
[2018-12-17] MEDS: INSULIN LISPRO 100 UNIT/ML 3 ML VIAL SUBCUT SCH ×4 (09:34→23:17)
--- NOTE | 2018-12-17 13:20 | PDOC PROGRESS REPORT ---
Subjective Progress Note for:: 12/17/18 Subjective:: 12/16/2018 patient was seen today by physical therapy and discharge planning. Patient has been turned down by 4 different facilities for discharge planning. Physical therapy however feels that it is unsafe for the patient to be discharged home, due to his inability to walk. Physical therapy has recommended residential facility. Also some question about whether or not the patient is competent to be making his own medical decisions therefore I have ordered a psych eval for competency evaluation 12/17/2018 patient is awaiting psych consult for competency evaluation. She actually has a discharge summary dictated on 12/15/2018 however patient was deemed unsafe physical therapy for ambulation therefore we are still trying to place patient in a residential facility. Patient is medically stable labs are stable Reason For Visit: SEPSIS, LLE OSTEMEYELITIS, ANEMIA Physical Exam Vital Signs: Temp Pulse Resp BP Pulse Ox 98.6 F 93 18 142/70 H 92 12/17/18 03:46 12/17/18 07:00 12/17/18 03:46 12/17/18 03:46 12/17/18 03:46 Intake & Output 12/16/18 12/17/18 12/18/18 06:59 06:59 06:59 Intake Total 2668 2620 1250 Output Total 3700 6425 Balance -1032 -3805 1250 Weight 119.7 kg 119 kg General appearance: PRESENT: no acute distress, well-developed, well-nourished Respiratory exam: PRESENT: clear to auscultation gino. ABSENT: rales, rhonchi, wheezes Cardiovascular exam: PRESENT: RRR. ABSENT: diastolic murmur, rubs, systolic murmur Extremities exam: PRESENT: other - Right below the knee amputation from previous surgery and now a new left below the knee amputation as well Neurological exam: PRESENT: alert, awake, oriented to person, oriented to place, oriented to time, oriented to situation, CN II-XII grossly intact. ABSENT: motor sensory deficit Psychiatric exam: PRESENT: flat affect Results Laboratory Results: 12/16/18 15:58 12/16/18 15:58 12/16/18 12/16/18 15:58 15:58 WBC 14.5 H RBC 3.47 L Hgb 8.8 L Hct 27.5 L MCV 79 L MCH 25.3 L MCHC 31.9 L RDW 20.7 H Plt Count 590 H Seg Neutrophils % Not Reportable Lymphocytes % Not Reportable Monocytes % Not Reportable Eosinophils % Not Reportable Basophils % Not Reportable Absolute Neutrophils Not Reportable Absolute Lymphocytes Not Reportable Absolute Monocytes Not Reportable Absolute Eosinophils Not Reportable Absolute Basophils Not Reportable Sodium 138.5 Potassium 3.7 Chloride 100 Carbon Dioxide 32 H Anion Gap 7 BUN 9 Creatinine 1.18 Est GFR ( Amer) > 60 Est GFR (Non-Af Amer) > 60 Glucose 161 H Calcium 8.1 L Total Bilirubin 1.2 AST 30 Alkaline Phosphatase 63 Total Protein 7.0 Albumin 2.6 L Impressions: Chest X-Ray 12/09/18 18:44 IMPRESSION: NO ACUTE RADIOGRAPHIC FINDING IN THE CHEST. Foot X-Ray 12/09/18 18:44 IMPRESSION: Markedly abnormal appearance of the foot; the appearance of subcutaneous gas with extensive osseous erosions and periosteal reaction is consistent with chronic osteomyelitis. Assessment and Plan - Diagnosis (1) Acute on chronic osteomyelitis of L foot Is this a current diagnosis for this admission?: Yes Plan: Status post left BKA. He had a smooth postoperative course. I will discontinue vancomycin and Zosyn in the next 24 hours. 12/16/2018 patient been on vancomycin since 12-13 and also on Zosyn. 12/17/2018 left below the knee amputation was performed on 12/10/2018. Patient continues IV antibiotics day #4 (2) Hypertension Qualifiers: Hypertension type: essential hypertension Qualified Code(s): I10 - Essenti al (primary) hypertension Is this a current diagnosis for this admission?: Yes Plan: Review his home medications and adjust accordingly. patient's blood pressures are running approximately 140/70 distantly patient was taking Coreg 12.5 mg every 12 hours and Prinivil 10 mg daily 12/17/2018 patient's blood pressures are well controlled at approximately 146/76, on the above medications listed (3) Osteomyelitis Qualifiers: Osteomyelitis type: chronic, with draining sinus Osteomyelitis location: foot Laterality: left Qualified Code(s): M86.472 - Chronic osteomyelitis with draining sinus, left ankle and foot Is this a current diagnosis for this admission?: Yes Plan: The foot definitely does not look salvageable. I was initially going to order an MRI of the foot as well as vascular studies, but on further consideration I do not think it would change his management. Surgery is planning on taking him to the OR for an amputation once he is more medically stable. He is on antibiotics for the meantime until the infected material is removed. 12/16/2018 Patient went to the OR on 12/10/2018 and had a left below the knee amputation since then patient has had a drain at the operative site which is been pulled patient continues to be on IV antibiotics, afebrile, having no complications. Last WBC was 14.83 days ago this will be repeated 12/17/2018 patient continues IV vancomycin and Zosyn patient remains afebrile, dynamically stable (4) Sepsis Qualifiers: Sepsis type: sepsis due to unspecified organism Sepsis acute organ dysfunction status: without acute organ dysfunction Qualified Code(s): A41.9 - Sepsis, unspecified organism Is this a current diagnosis for this admission?: Yes Plan: He got his fluid bolus in the ER and has been started on vancomycin and Zosyn. Blood cultures have been obtained. This is almost certainly due to a chronic progressive long-standing infection in the left foot. We will admit him to IMCU. No signs of acute organ dysfunction at this time. His INR was elevated but it was also elevated about the same level, around 1.5, when he was here in 2011. 12/16/2018 patient remains afebrile vital signs are stable, patient has been on antibiotics now for 7 days 12/17/2018 no signs of sepsis at this time, patient is medically stable waiting for placement - Time Time Spent with patient: 25-34 minutes
[2018-12-17 18:26] LABS: VANCOMYCIN,TROUGH 11.7 ug/mL (5.0-20.0)
--- NOTE | 2018-12-17 20:08 | PSYCHOLOGICAL NOTE ---
Psych Note - Psych Note Date seen by psych provider: 12/17/18 Time seen by psych provider: 14:04 - Chart review at 1404. Evaluation from 1738- 1743. Psych Note: Presenting Problem: Capacity. DC Planning is involved and PT has concern for inability to walk given he had a previous prosthetic on right foot and now had to have surgery on left tip of foot to ankle for removal. Hewas denied by 4 SNF facilities. Patient passed the capacity screening measyres with accuracy: where he was, city, , current date to include month/day/year, how items were similar, what he would do if his neighbor's house was on fire, what he would do if his bathroom flooded. He stated he had this testing done before at [facility] in April 2018 when they said he could make decisions foe himself. He reported he resides with his mother (age 64 reportedly) and he mostly takes care of her versus the other way around. He denied MH Hx to include medications and previous hospitalizations. He acknowledged he has increased depression from being in the hospital but had enough insight to say it was situational and he did not thin he'd need medication continuous churn buttermaker. Patient was alert and oriented x5 with linear thinking, fair eye contact, he was engaged in evaluation, no observed psychosis and conversational speech was within normal limits for rate/tone/prosody. Diagnosis: Depression (likely related to being in the hospital and medical issues) Medication recommendation made by the psychiatric medical provider, Dr. Adina MD., includes: Add Celexa 20MG daily for depression/anxiety Impression/Plan: Patient is cleared from acute psychiatric services. Patient was alert and oriented x5 with linear thinking, fair eye contact, he was engaged in evaluation, no observed psychosis and conversational speech was within normal limits for rate/tone/prosody. Capacity not needed. He passed the screening questions asked. Thought there may be concerns with mobility issues there is not concern for cognitive processes. Consulted with Dr. Fraire regarding the management and care of patient. Tried calling the overnight attending Hospitalist but not available.
[2018-12-17] MEDS: INSULIN GLARGINE,HUM.REC.ANLOG 1,000 UNIT/10 ML VIAL SUBCUT SCH (23:18)
[2018-12-18] MEDS: GABAPENTIN 300 MG CAPSULE PO SCH ×3 (06:05→22:45)
[2018-12-18] MEDS: HEPARIN SOD (PORCINE) 5,000 UNIT/ML 1 ML VIAL SUBCUT SCH ×3 (06:05→22:45)
[2018-12-18] MEDS: INSULIN LISPRO 100 UNIT/ML 3 ML VIAL SUBCUT SCH ×4 (08:57→22:43)
--- NOTE | 2018-12-18 13:45 | PDOC PROGRESS REPORT ---
Subjective Progress Note for:: 12/18/18 Subjective:: 12/16/2018 patient was seen today by physical therapy and discharge planning. Patient has been turned down by 4 different facilities for discharge planning. Physical therapy however feels that it is unsafe for the patient to be discharged home, due to his inability to walk. Physical therapy has recommended assisted facility. Also some question about whether or not the patient is competent to be making his own medical decisions therefore I have ordered a psych eval for competency evaluation 12/17/2018 patient is awaiting psych consult for competency evaluation. She actually has a discharge summary dictated on 12/15/2018 however patient was deemed unsafe physical therapy for ambulation therefore we are still trying to place patient in a assisted facility. Patient is medically stable labs are stable 12/18/2018 psych consult is seen the patient and feel that he is competent to make decisions and be discharged. Patient has actually applied now for Medicaid and therefore with this pending we will resubmit to nursing facilities. Due to patient having bilateral below the knee amputations he is unsteady with gait benefit from further rehab Blood pressure 154/86 temperature 98 on room air 96% sat. Fingerstick glucose 126. Patient is on no antibiotics and vancomycin was discontinued yesterday Reason For Visit: SEPSIS, LLE OSTEMEYELITIS, ANEMIA Physical Exam Vital Signs: Temp Pulse Resp BP Pulse Ox 98.0 F 99 18 154/86 H 96 12/18/18 11:30 12/18/18 11:30 12/18/18 11:30 12/18/18 11:30 12/18/18 11:30 Intake & Output 12/17/18 12/18/18 12/19/18 06:59 06:59 06:59 Intake Total 2620 2009 720 Output Total 6425 1700 950 Balance -3805 310 -230 Weight 119 kg 119 kg General appearance: PRESENT: no acute distress, well-developed, well-nourished, other - Resting comfortably Respiratory exam: PRESENT: clear to auscultation gino. ABSENT: rales, rhonchi, w heezes Cardiovascular exam: PRESENT: RRR. ABSENT: diastolic murmur, rubs, systolic murmur Extremities exam: PRESENT: other - No sign of infection at amputation site Neurological exam: PRESENT: alert, awake, oriented to person, oriented to place, oriented to time, oriented to situation, CN II-XII grossly intact. ABSENT: mo tor sensory deficit Psychiatric exam: PRESENT: flat affect Results Laboratory Results: 12/16/18 15:58 12/16/18 15:58 12/13/18 06:08 Blood Blood Culture - Final NO GROWTH IN 5 DAYS 12/13/18 05:00 Blood Blood Culture - Final NO GROWTH IN 5 DAYS Impressions: Chest X-Ray 12/09/18 18:44 IMPRESSION: NO ACUTE RADIOGRAPHIC FINDING IN THE CHEST. Foot X-Ray 12/09/18 18:44 IMPRESSION: Markedly abnormal appearance of the foot; the appearance of subcutaneous gas with extensive osseous erosions and periosteal reaction is consistent with chronic osteomyelitis. Assessment and Plan - Diagnosis (1) Acute on chronic osteomyelitis of L foot Is this a current diagnosis for this admission?: Yes Plan: Status post left BKA. He had a smooth postoperative course. I will discontinue vancomycin and Zosyn in the next 24 hours. 12/16/2018 patient been on vancomycin since 12-13 and also on Zosyn. 12/17/2018 left below the knee amputation was performed on 12/10/2018. Patient continues IV antibiotics day #4 12/18/2018 no further osteomyelitis of the left foot due to a below the knee amputation (2) Hypertension Qualifiers: Hypertension type: essential hypertension Qualified Code(s): I10 - Essential (primary) hypertension Is this a current diagnosis for this admission?: Yes Plan: Review his home medications and adjust accordingly. patient's blood pressures are running approximately 140/70 distantly patient was taking Coreg 12.5 mg every 12 hours and Prinivil 10 mg daily 12/17/2018 patient's blood pressures are well controlled at approximately 146/76, on the above medications listed 12/18/2018 she is doing well on blood pressure medications (3) Osteomyelitis Qualifiers: Osteomyelitis type: chronic, with draining sinus Osteomyelitis location: foot Laterality: left Qualified Code(s): M86.472 - Chronic osteomyelitis with draining sinus, left ankle and foot Is this a current diagnosis for this admission?: Yes Plan: The foot definitely does not look salvageable. I was initially going to order an MRI of the foot as well as vascular studies, but on further consideration I do not think it would change his management. Surgery is planning on taking him to the OR for an amputation once he is more medically stable. He is on antibiotics for the meantime until the infected material is removed. 12/16/2018 Patient went to the OR on 12/10/2018 and had a left below the knee amputation si nce then patient has had a drain at the operative site which is been pulled patient continues to be on IV antibiotics, afebrile, having no complications. Last WBC was 14.83 days ago this will be repeated 12/17/2018 patient continues IV vancomycin and Zosyn patient remains afebrile, dynamically stable 12/18/2018 patient remains afebrile however white count remains slightly elevated. Patient's vancomycin was discontinued yesterday patient is on no antibiotics (4) Sepsis Qualifiers: Sepsis type: sepsis due to unspecified organism Sepsis acute organ dysfunction status: without acute organ dysfunction Qualified Code(s): A41.9 - Sepsis, unspecified organism Is this a current diagnosis for this admission?: Yes Plan: He got his fluid bolus in the ER and has been started on vancomycin and Zosyn. Blood cultures have been obtained. This is almost certainly due to a chronic progressive long-standing infection in the left foot. We will admit him to IMCU. No signs of acute organ dysfunction at this time. His INR was elevated but it was also elevated about the same level, around 1.5, when he was here in 2011. 12/16/2018 patient remains afebrile vital signs are stable, patient has been on antibiotics now for 7 days 12/17/2018 no signs of sepsis at this time, patient is medically stable waiting for placement With the amputation of the foot no clinical signs of sepsis at this time. Patient is on no antibiotics - Time Time Spent with patient: 25-34 minutes - Medicaid has been applied for and assisted facility will be resubmitted
[2018-12-18] MEDS: INSULIN GLARGINE,HUM.REC.ANLOG 1,000 UNIT/10 ML VIAL SUBCUT SCH (22:44)
[2018-12-19] MEDS: HEPARIN SOD (PORCINE) 5,000 UNIT/ML 1 ML VIAL SUBCUT SCH ×3 (06:14→22:31)
[2018-12-19] MEDS: GABAPENTIN 300 MG CAPSULE PO SCH ×3 (06:14→22:31)
[2018-12-19] MEDS: INSULIN LISPRO 100 UNIT/ML 3 ML VIAL SUBCUT SCH ×4 (08:12→22:31)
--- NOTE | 2018-12-19 09:18 | PDOC PROGRESS REPORT ---
Subjective Progress Note for:: 12/19/18 Subjective:: 12/16/2018 patient was seen today by physical therapy and discharge planning. Patient has been turned down by 4 different facilities for discharge planning. Physical therapy however feels that it is unsafe for the patient to be discharged home, due to his inability to walk. Physical therapy has recommended halfway facility. Also some question about whether or not the patient is competent to be making his own medical decisions therefore I have ordered a psych eval for competency evaluation 12/17/2018 patient is awaiting psych consult for competency evaluation. She actually has a discharge summary dictated on 12/15/2018 however patient was deemed unsafe physical therapy for ambulation therefore we are still trying to place patient in a halfway facility. Patient is medically stable labs are stable 12/18/2018 psych consult is seen the patient and feel that he is competent to make decisions and be discharged. Patient has actually applied now for Medicaid and therefore with this pending we will resubmit to nursing facilities. Due to patient having bilateral below the knee amputations he is unsteady with gait benefit from further rehab Blood pressure 154/86 temperature 98 on room air 96% sat. Fingerstick glucose 126. Patient is on no antibiotics and vancomycin was discontinued yesterday patient's vital signs are stable patient is afebrile blood pressure stable glucose stable as well, fingerstick blood sugars been 90 and 160 We will repeat labs today as they have not been done in 3 days. Patient's information has once again been resubmitted to nursing facilities, Medicaid paperwork has also been initiated. We will continue with gait assistance, physical therapy while waiting on placement. Patient is medically stable Reason For Visit: SEPSIS, LLE OSTEMEYELITIS, ANEMIA Physical Exam Vital Signs: Temp Pulse Resp BP Pulse Ox 99.0 F 101 H 14 141/74 H 94 12/18/18 23:45 12/19/18 06:46 12/19/18 04:06 12/19/18 04:06 12/19/18 04:06 Intake & Output 12/18/18 12/19/18 12/20/18 06:59 06:59 06:59 Intake Total 2009 1919 Output Total 1699 2101 Balance 310 -182 Weight 119 kg 113.7 kg General appearance: PRESENT: no acute distress, well-developed, well-nourished Respiratory exam: PRESENT: clear to auscultation gino. ABSENT: rales, rhonchi, wheezes Cardiovascular exam: PRESENT: RRR. ABSENT: diastolic murmur, rubs, systolic murmur Neurological exam: PRESENT: alert, awake, oriented to person, oriented to place, oriented to time, oriented to situation, CN II-XII grossly intact. ABSENT: motor sensory deficit Psychiatric exam: PRESENT: appropriate affect, normal mood, other - Patient asked that his saline lock be discontinued today ,I see no reason to keep it at this time. ABSENT: homicidal ideation, suicidal ideation Results Laboratory Results: 12/16/18 15:58 12/16/18 15:58 12/13/18 06:08 Blood Blood Culture - Final NO GROWTH IN 5 DAYS Impressions: Chest X-Ray 12/09/18 18:44 IMPRESSION: NO ACUTE RADIOGRAPHIC FINDING IN THE CHEST. Foot X-Ray 12/09/18 18:44 IMPRESSION: Markedly abnormal appearance of the foot; the appearance of subcutaneous gas with extensive osseous erosions and periosteal reaction is con sistent with chronic osteomyelitis. Assessment and Plan - Diagnosis (1) Acute on chronic osteomyelitis of L foot Is this a current diagnosis for this admission?: Yes Plan: Status post left BKA. He had a smooth postoperative course. I will discontinue vancomycin and Zosyn in the next 24 hours. 12/16/2018 patient been on vancomycin since 12-13 and also on Zosyn. 12/17/2018 left below the knee amputation was performed on 12/10/2018. Patient continues IV antibiotics day #4 12/18/2018 no further osteomyelitis of the left foot due to a below the knee amputation. 12/19/2018 we will repeat ABC today patient remains afebrile and normotensive (2) Hypertension Qualifiers: Hypertension type: essential hypertension Qualified Code(s): I10 - Essential (primary) hypertension Is this a current diagnosis for this admission?: Yes Plan: Review his home medications and adjust accordingly. patient's blood pressures are running approximately 140/70 distantly patient was taking Coreg 12.5 mg every 12 hours and Prinivil 10 mg daily 12/17/2018 patient's blood pressures are well controlled at approximately 146/76, on the above medications listed 12/18/2018 he is doing well on blood pressure medications 12/19/2018 continues his Coreg 12.5 mg 12 hours and Prinivil 10 mg daily. Blood pressures controlled (3) Osteomyelitis Qualifiers: Osteomyelitis type: chronic, with draining sinus Osteomyelitis location: foot Laterality: left Qualified Code(s): M86.472 - Chronic osteomyelitis with draining sinus, left ankle and foot Is this a current diagnosis for this admission?: Yes Plan: The foot definitely does not look salvageable. I was initially going to order an MRI of the foot as well as vascular studies, but on further consideration I do not think it would change his management. Surgery is planning on taking him to the OR for an amputation once he is more medically stable. He is on antibiotics for the meantime until the infected material is removed. 12/16/2018 Patient went to the OR on 12/10/2018 and had a left below the knee amputation since then patient has had a drain at the operative site which is been pulled patient continues to be on IV antibiotics, afebrile, having no complications. Last WBC was 14.83 days ago this will be repeated 12/17/2018 patient continues IV vancomycin and Zosyn patient remains afebrile, dynamically stable 12/18/2018 patient remains afebrile however white count remains slightly elevated. Patient's vancomycin was discontinued yesterday patient is on no antibiotics 12/19/2018 patient's CBC will be repeated today, patient is afebrile. No sign of sepsis (4) Sepsis Qualifiers: Sepsis type: sepsis due to unspecified organism Sepsis acute organ dysfunction status: without acute organ dysfunction Qualified Code(s): A41.9 - Sepsis, unspecified organism Is this a current diagnosis for this admission?: Yes Plan: He got his fluid bolus in the ER and has been started on vancomycin and Zosyn. Blood cultures have been obtained. This is almost certainly due to a chronic progressive long-standing infection in the left foot. We will admit him to IMCU. No signs of acute organ dysfunction at this time. His INR was elevated but it was also elevated about the same level, around 1.5, when he was here in 2011. 12/16/2018 patient remains afebrile vital signs are stable, patient has been on antibiotics now for 7 days 12/17/2018 no signs of sepsis at this time, patient is medically stable waiting for placement With the amputation of the foot no clinical signs of sepsis at this time. Patient is on no antibiotics. 12/19/2018- sepsis patient is afebrile. Repeat CBC today patient has been off of his antibiotics now for 48 hours - Time Time Spent with patient: 15-24 minutes
[2018-12-19 11:25] LABS: HEMOGLOBIN 9.3 g/dL (13.5-17.0); MEAN CORPUSCULAR HEMOGLOBIN 25.7 pg (27.0-33.4); MEAN CORPUSCULAR HGB CONC 32.1 g/dL (32.0-36.0); MEAN CORPUSCULAR VOLUME 80 fl (80-97); PLATELET COUNT 577 10^3/uL (150-450); RED BLOOD COUNT 3.63 10^6/uL (4.35-5.55); RED CELL DISTRIBUTION WIDTH 20.6 % (11.5-14.0); WHITE BLOOD COUNT 23.6 10^3/uL (4.0-10.5)
[2018-12-19 11:35] LABS: ANION GAP 8 (5-19); BLOOD UREA NITROGEN 12 mg/dL (7-20); CALCIUM 8.6 mg/dL (8.4-10.2); CARBON DIOXIDE 29 mmol/L (22-30); CHLORIDE 100 mmol/L (98-107); GLUCOSE 113 mg/dL (75-110); POTASSIUM 3.9 mmol/L (3.6-5.0)
[2018-12-19 11:57] LABS: ABSOLUTE LYMPHOCYTES# (MANUAL) 2.6 10^3/uL (0.5-4.7); ABSOLUTE MONOCYTES # (MANUAL) 0.5 10^3/uL (0.1-1.4); BASOPHILS % (MANUAL) 0 % (0-2); EOSINOPHILS % (MANUAL) 2 % (0-6); LYMPHOCYTES % (MANUAL) 11 % (13-45); MONOCYTES % (MANUAL) 2 % (3-13); SEGMENTED NEUTROPHILS % (MAN) 85 % (42-78); TOTAL CELLS COUNTED 100
[2018-12-19 11:58] LABS: ANISOCYTOSIS 2+; PLATELET COMMENT INCREASED
[2018-12-19 11:59] LABS: POLYCHROMASIA SLIGHT
[2018-12-19] MEDS: INSULIN GLARGINE,HUM.REC.ANLOG 1,000 UNIT/10 ML VIAL SUBCUT SCH (22:32)
[2018-12-20] MEDS: GABAPENTIN 300 MG CAPSULE PO SCH ×3 (06:08→21:40)
[2018-12-20] MEDS: HEPARIN SOD (PORCINE) 5,000 UNIT/ML 1 ML VIAL SUBCUT SCH ×3 (06:08→21:40)
[2018-12-20] MEDS: INSULIN LISPRO 100 UNIT/ML 3 ML VIAL SUBCUT SCH ×4 (09:17→21:40)
--- NOTE | 2018-12-20 16:28 | PDOC PROGRESS REPORT ---
Subjective Progress Note for:: 12/20/18 Subjective:: This is unfortunate 43 years old black male patient with past medical history of hypertension, obesity, type 2 diabetes mellitus, anemia presented with chief complaint of left foot pain and swelling. Patient reports this about 2 months ago he had a small cut and he treated himself with topical antibiotics. Of note patient had right BKA about 7 years ago. He states the wound is progressively increasing and draining. Patient has leukocytosis and fever of 101. X-ray of the foot reported as markedly abnormal appearance of the foot; the appearance of subcutaneous gas with extensive osseous erosions and periosteal reaction is consistent with chronic osteomyelitis. Clinically looks patient has acute on chronic osteomyelitis. Because of the fever and leukocytosis. Patient evaluated by surgical team and does not seem medical management will salvage the left foot and recommended left BKA. Patient also found to have profound anemia with hemoglobin of 5.4 for which she transfused with 2 units of packed RBC. 12/11/2018: Patient seen and examined while resting in bed. He does not have any fever nausea or vomiting. He complains of pain at the surgical site. His labs reviewed at admission his hemoglobin was 5.4 and after 2 units of PRBC increased to 8.2 today it is 7.6. His ESR is 120. I will transfuse with 1 unit of PRBC and I will discontinue Zosyn and vancomycin after 24 hours since the septic focus has been removed. 12/12/2018: Patient seen and examined while resting in bed. He is awake alert oriented. He reports this the pain at the surgical site is improving. He does not have fever, nausea or vomiting. He eats well. His white cell count slightly increased. He is 2 bottles of blood cultures are positive for gram- positive cocci in chains. The final report of the blood cultures pending. And blood culture repeat is ordered. I will keep his antibiotics until the final report of the blood culture. 12/13/2018: Patient seen while enjoying his breakfast. He does not have any nausea vomiting fever. His white cell count is trending down. Repeat blood culture result is pending. 12/14/2018: No significant change overnight. No new complaint. 12/20/2018: Patient seen resting in bed comfortably. No adverse events overnig ht. Patient has been awaiting placement. Reason For Visit: SEPSIS, LLE OSTEMEYELITIS, ANEMIA Physical Exam Vital Signs: Temp Pulse Resp BP Pulse Ox 99.1 F 99 16 130/70 H 93 12/20/18 04:37 12/20/18 14:00 12/20/18 08:57 12/20/18 08:57 12/20/18 08:57 Intake & Output 12/19/18 12/20/18 12/21/18 06:59 06:59 06:59 Intake Total 1920 1420 Output Total 2102 1950 Balance -182 -530 Weight 113.7 kg 113.3 kg General appearance: PRESENT: no acute distress Head exam: PRESENT: atraumatic Eye exam: PRESENT: conjunctiva pink Neck exam: ABSENT: carotid bruit, JVD, lymphadenopathy, thyromegaly Respiratory exam: PRESENT: clear to auscultation gino. ABSENT: rales, rhonchi, wheezes GI/Abdominal exam: PRESENT: normal bowel sounds, soft. ABSENT: distended, guarding, mass, organolmegaly, rebound, tenderness Neurological exam: PRESENT: alert, awake, oriented to person, oriented to place, oriented to time, oriented to situation Results Laboratory Results: 12/19/18 10:35 12/19/18 10:35 Impressions: Chest X-Ray 12/09/18 18:44 IMPRESSION: NO ACUTE RADIOGRAPHIC FINDING IN THE CHEST. Foot X-Ray 12/09/18 18:44 IMPRESSION: Markedly abnormal appearance of the foot; the appearance of subcutaneous gas with extensive osseous erosions and periosteal reaction is consistent with chronic osteomyelitis. Assessment and Plan - Diagnosis (1) Gram-positive cocci bacteremia Is this a current diagnosis for this admission?: Yes Plan: Final report of the blood cultures pending. I will continue his antibiotics. (2) Acute on chronic osteomyelitis of L foot Is this a current diagnosis for this admission?: Yes Plan: Status post left BKA. He had a smooth postoperative course. I will discontinue vancomycin and Zosyn in the next 24 hours. 12/16/2018 patient been on vancomycin since 12-13 and also on Zosyn. 12/17/2018 left below the knee amputation was performed on 12/10/2018. Patient continues IV antibiotics day #4 12/18/2018 no further osteomyelitis of the left foot due to a below the knee amputation. 12/19/2018 we will repeat ABC today patient remains afebrile and normotensive (3) Microcytic anemia Is this a current diagnosis for this admission?: Yes Plan: His latest hemoglobin is 7.6. I will transfuse him with 1 unit of packed RBC. (4) Type 2 diabetes mellitus Is this a current diagnosis for this admission?: Yes Plan: His hemoglobin A1c 6.2. (5) Hypertension Qualifiers: Hypertension type: essential hypertension Qualified Code(s): I10 - Essential (primary) hypertension Is this a current diagnosis for this admission?: Yes Plan: Review his home medications and adjust accordingly. patient's blood pressures are running approximately 140/70 distantly patient was taking Coreg 12.5 mg every 12 hours and Prinivil 10 mg daily 12/17/2018 patient's blood pressures are well controlled at approximately 146/76, on the above medications listed 12/18/2018 he is doing well on blood pressure medications 12/19/2018 continues his Coreg 12.5 mg 12 hours and Prinivil 10 mg daily. Blood pressures controlled
[2018-12-20] MEDS: INSULIN GLARGINE,HUM.REC.ANLOG 1,000 UNIT/10 ML VIAL SUBCUT SCH (21:40)
[2018-12-21] MEDS: HEPARIN SOD (PORCINE) 5,000 UNIT/ML 1 ML VIAL SUBCUT SCH ×3 (06:02→22:55)
[2018-12-21] MEDS: GABAPENTIN 300 MG CAPSULE PO SCH ×3 (06:02→22:56)
[2018-12-21] MEDS: INSULIN LISPRO 100 UNIT/ML 3 ML VIAL SUBCUT SCH ×4 (09:28→22:26)
--- NOTE | 2018-12-21 16:14 | PDOC PROGRESS REPORT ---
Subjective Progress Note for:: 12/21/18 Subjective:: This is unfortunate 43 years old black male patient with past medical history of hypertension, obesity, type 2 diabetes mellitus, anemia presented with chief complaint of left foot pain and swelling. Patient reports this about 2 months ago he had a small cut and he treated himself with topical antibiotics. Of note patient had right BKA about 7 years ago. He states the wound is progressively increasing and draining. Patient has leukocytosis and fever of 101. X-ray of the foot reported as markedly abnormal appearance of the foot; the appearance of subcutaneous gas with extensive osseous erosions and periosteal reaction is consistent with chronic osteomyelitis. Clinically looks patient has acute on chronic osteomyelitis. Because of the fever and leukocytosis. Patient evaluated by surgical team and does not seem medical management will salvage the left foot and recommended left BKA. Patient also found to have profound anemia with hemoglobin of 5.4 for which she transfused with 2 units of packed RBC. 12/11/2018: Patient seen and examined while resting in bed. He does not have any fever nausea or vomiting. He complains of pain at the surgical site. His labs reviewed at admission his hemoglobin was 5.4 and after 2 units of PRBC increased to 8.2 today it is 7.6. His ESR is 120. I will transfuse with 1 unit of PRBC and I will discontinue Zosyn and vancomycin after 24 hours since the septic focus has been removed. 12/12/2018: Patient seen and examined while resting in bed. He is awake alert oriented. He reports this the pain at the surgical site is improving. He does not have fever, nausea or vomiting. He eats well. His white cell count slightly increased. He is 2 bottles of blood cultures are positive for gram- positive cocci in chains. The final report of the blood cultures pending. And blood culture repeat is ordered. I will keep his antibiotics until the final report of the blood culture. 12/13/2018: Patient seen while enjoying his breakfast. He does not have any nausea vomiting fever. His white cell count is trending down. Repeat blood culture result is pending. 12/14/2018: No significant change overnight. No new complaint. 12/20/2018: Patient seen resting in bed comfortably. No adverse events overnig ht. Patient has been awaiting placement. 12/21/2018: Patient does not have new complaint. He has unexplained leukocytosis. Reason For Visit: SEPSIS, LLE OSTEMEYELITIS, ANEMIA Physical Exam Vital Signs: Temp Pulse Resp BP Pulse Ox 98.7 F 105 H 16 146/76 H 94 12/21/18 11:57 12/21/18 14:00 12/21/18 11:57 12/21/18 11:57 12/21/18 11:57 Intake & Output 12/20/18 12/21/18 12/22/18 06:59 06:59 06:59 Intake Total 1420 1531 751 Output Total 1950 4020 1100 Balance -368 -5377 -931 Weight 113.3 kg 115.9 kg General appearance: PRESENT: no acute distress Head exam: PRESENT: atraumatic Respiratory exam: PRESENT: clear to auscultation gino. ABSENT: rales, rhonchi, wheezes Cardiovascular exam: PRESENT: RRR. ABSENT: diastolic murmur, rubs, systolic murmur Neurological exam: PRESENT: alert, awake, oriented to person, oriented to place, oriented to time, oriented to situation Results Laboratory Results: 12/19/18 10:35 12/19/18 10:35 Impressions: Chest X-Ray 12/09/18 18:44 IMPRESSION: NO ACUTE RADIOGRAPHIC FINDING IN THE CHEST. Foot X-Ray 12/09/18 18:44 IMPRESSION: Markedly abnormal appearance of the foot; the appearance of subcutaneous gas with extensive osseous erosions and periosteal reaction is consistent with chronic osteomyelitis. Assessment and Plan - Diagnosis (1) Leukocytosis Is this a current diagnosis for this admission?: Yes Plan: Etiology is unclear. We will monitor CBC. (2) Gram-positive cocci bacteremia Is this a current diagnosis for this admission?: Yes Plan: Final report of the blood cultures pending. I will continue his antibiotics. (3) Acute on chronic osteomyelitis of L foot Is this a current diagnosis for this admission?: Yes Plan: Status post left BKA. He had a smooth postoperative course. I will discontinue vancomycin and Zosyn in the next 24 hours. 12/16/2018 patient been on vancomycin since 12-13 and also on Zosyn. 12/17/2018 left below the knee amputation was performed on 12/10/2018. Patient continues IV antibiotics day #4 12/18/2018 no further osteomyelitis of the left foot due to a below the knee amputation. 12/19/2018 we will repeat ABC today patient remains afebrile and normotensive (4) Microcytic anemia Is this a current diagnosis for this admission?: Yes Plan: His latest hemoglobin is 7.6. I will transfuse him with 1 unit of packed RBC. (5) Type 2 diabetes mellitus Is this a current diagnosis for this admission?: Yes Plan: His hemoglobin A1c 6.2. (6) Hypertension Qualifiers: Hypertension type: essential hypertension Qualified Code(s): I10 - Essential (primary) hypertension Is this a current diagnosis for this admission?: Yes Plan: Review his home medications and adjust accordingly. patient's blood pressures are running approximately 140/70 distantly dano johnson was taking Coreg 12.5 mg every 12 hours and Prinivil 10 mg daily 12/17/2018 patient's blood pressures are well controlled at approximately 146/76, on the above medications listed 12/18/2018 he is doing well on blood pressure medications 12/19/2018 continues his Coreg 12.5 mg 12 hours and Prinivil 10 mg daily. Blood pressures controlled
[2018-12-21] MEDS: INSULIN GLARGINE,HUM.REC.ANLOG 1,000 UNIT/10 ML VIAL SUBCUT SCH (22:56)
[2018-12-22] MEDS: HEPARIN SOD (PORCINE) 5,000 UNIT/ML 1 ML VIAL SUBCUT SCH ×3 (06:59→21:20)
[2018-12-22] MEDS: GABAPENTIN 300 MG CAPSULE PO SCH ×3 (07:01→21:21)
[2018-12-22 07:04] LABS: ABSOLUTE BASOPHILS # (AUTO) 0.2 10^3/uL (0.0-0.2); ABSOLUTE EOSINOPHILS # (AUTO) 0.5 10^3/uL (0.0-0.6); ABSOLUTE LYMPHOCYTES (AUTO) 2.1 10^3/uL (0.5-4.7); ABSOLUTE NEUT (AUTO) 10.1 10^3/uL (1.7-8.2); BASOPHILS % (AUTO) 1.2 % (0-2); EOSINOPHILS % (AUTO) 3.3 % (0-6); HEMATOCRIT 25.8 % (37.9-51.0); HEMOGLOBIN 8.2 g/dL (13.5-17.0); LYMPHOCYTES % (AUTO) 15.4 % (13-45); MEAN CORPUSCULAR HEMOGLOBIN 25.8 pg (27.0-33.4); MEAN CORPUSCULAR HGB CONC 31.8 g/dL (32.0-36.0); MEAN CORPUSCULAR VOLUME 81 fl (80-97); MONOCYTES % (AUTO) 7.5 % (3-13); PLATELET COUNT 460 10^3/uL (150-450); RED BLOOD COUNT 3.18 10^6/uL (4.35-5.55); RED CELL DISTRIBUTION WIDTH 20.6 % (11.5-14.0); SEGMENTED NEUTROPHILS % (AUTO) 72.6 % (42-78); TOTAL CELLS COUNTED % (AUTO) 100 %; WHITE BLOOD COUNT 13.8 10^3/uL (4.0-10.5)
[2018-12-22] MEDS: INSULIN LISPRO 100 UNIT/ML 3 ML VIAL SUBCUT SCH ×4 (08:18→21:20)
--- NOTE | 2018-12-22 17:43 | PDOC PROGRESS REPORT ---
Subjective Progress Note for:: 12/22/18 Subjective:: This is unfortunate 43 years old black male patient with past medical history of hypertension, obesity, type 2 diabetes mellitus, anemia presented with chief complaint of left foot pain and swelling. Patient reports this about 2 months ago he had a small cut and he treated himself with topical antibiotics. Of note patient had right BKA about 7 years ago. He states the wound is progressively increasing and draining. Patient has leukocytosis and fever of 101. X-ray of the foot reported as markedly abnormal appearance of the foot; the appearance of subcutaneous gas with extensive osseous erosions and periosteal reaction is consistent with chronic osteomyelitis. Clinically looks patient has acute on chronic osteomyelitis. Because of the fever and leukocytosis. Patient evaluated by surgical team and does not seem medical management will salvage the left foot and recommended left BKA. Patient also found to have profound anemia with hemoglobin of 5.4 for which she transfused with 2 units of packed RBC. 12/11/2018: Patient seen and examined while resting in bed. He does not have any fever nausea or vomiting. He complains of pain at the surgical site. His labs reviewed at admission his hemoglobin was 5.4 and after 2 units of PRBC increased to 8.2 today it is 7.6. His ESR is 120. I will transfuse with 1 unit of PRBC and I will discontinue Zosyn and vancomycin after 24 hours since the septic focus has been removed. 12/12/2018: Patient seen and examined while resting in bed. He is awake alert oriented. He reports this the pain at the surgical site is improving. He does not have fever, nausea or vomiting. He eats well. His white cell count slightly increased. He is 2 bottles of blood cultures are positive for gram- positive cocci in chains. The final report of the blood cultures pending. And blood culture repeat is ordered. I will keep his antibiotics until the final report of the blood culture. 12/13/2018: Patient seen while enjoying his breakfast. He does not have any nausea vomiting fever. His white cell count is trending down. Repeat blood culture result is pending. 12/14/2018: No significant change overnight. No new complaint. 12/20/2018: Patient seen resting in bed comfortably. No adverse events overnig ht. Patient has been awaiting placement. 12/21/2018: Patient does not have new complaint. He has unexplained leukocytosis. Reason For Visit: SEPSIS, LLE OSTEMEYELITIS, ANEMIA Physical Exam Vital Signs: Temp Pulse Resp BP Pulse Ox 98.5 F 96 16 145/75 H 95 12/22/18 08:14 12/22/18 08:14 12/22/18 08:14 12/22/18 08:14 12/22/18 08:14 Intake & Output 12/21/18 12/22/18 12/23/18 06:59 06:59 06:59 Intake Total 1531 1666 Output Total 4020 2400 Balance -2489 -734 Weight 115.9 kg 109.3 kg General appearance: PRESENT: no acute distress Neck exam: ABSENT: carotid bruit, JVD, lymphadenopathy, thyromegaly Respiratory exam: PRESENT: clear to auscultation gino. ABSENT: rales, rhonchi, wheezes Cardiovascular exam: PRESENT: RRR. ABSENT: diastolic murmur, rubs, systolic murmur Neurological exam: PRESENT: alert, awake, oriented to person, oriented to time, oriented to situation Results Laboratory Results: 12/22/18 05:57 12/19/18 10:35 12/22/18 05:57 WBC 13.8 H RBC 3.18 L Hgb 8.2 L Hct 25.8 L MCV 81 MCH 25.8 L MCHC 31.8 L RDW 20.6 H Plt Count 460 H Seg Neutrophils % 72.6 Impressions: Chest X-Ray 12/09/18 18:44 IMPRESSION: NO ACUTE RADIOGRAPHIC FINDING IN THE CHEST. Foot X-Ray 12/09/18 18:44 IMPRESSION: Markedly abnormal appearance of the foot; the appearance of subcutaneous gas with extensive osseous erosions and periosteal reaction is consistent with chronic osteomyelitis. Assessment and Plan - Diagnosis (1) Leukocytosis Is this a current diagnosis for this admission?: Yes Plan: His WBC was 26,000 yesterday today it is 13,000. (2) Gram-positive cocci bacteremia Is this a current diagnosis for this admission?: Yes Plan: Final report of the blood cultures pending. I will continue his antibiotics. (3) Acute on chronic osteomyelitis of L foot Is this a current diagnosis for this admission?: Yes Plan: Status post left BKA. He had a smooth postoperative course. I will discontinue vancomycin and Zosyn in the next 24 hours. 12/16/2018 patient been on vancomycin since 12-13 and also on Zosyn. 12/17/2018 left below the knee amputation was performed on 12/10/2018. Patient continues IV antibiotics day #4 12/18/2018 no further osteomyelitis of the left foot due to a below the knee amputation. 12/19/2018 we will repeat ABC today patient remains afebrile and normotensive (4) Microcytic anemia Is this a current diagnosis for this admission?: Yes Plan: His latest hemoglobin is 7.6. I will transfuse him with 1 unit of packed RBC. (5) Type 2 diabetes mellitus Is this a current diagnosis for this admission?: Yes Plan: His hemoglobin A1c 6.2. (6) Hypertension Qualifiers: Hypertension type: essential hypertension Qualified Code(s): I10 - Essential (primary) hypertension Is this a current diagnosis for this admission?: Yes Plan: Review his home medications and adjust accordingly. patient's blood pressures are running approximately 140/70 distantly patient was taking Coreg 12.5 mg every 12 hours and Prinivil 10 mg daily 12/17/2018 patient's blood pressures are well controlled at approximately 146/76, on the above medications listed 12/18/2018 he is doing well on blood pressure medications 12/19/2018 continues his Coreg 12.5 mg 12 hours and Prinivil 10 mg daily. Blood pressures controlled
[2018-12-22] MEDS: INSULIN GLARGINE,HUM.REC.ANLOG 1,000 UNIT/10 ML VIAL SUBCUT SCH (21:20)
[2018-12-23] MEDS: HEPARIN SOD (PORCINE) 5,000 UNIT/ML 1 ML VIAL SUBCUT SCH ×3 (05:32→22:31)
[2018-12-23] MEDS: GABAPENTIN 300 MG CAPSULE PO SCH ×3 (05:33→22:30)
[2018-12-23] MEDS: INSULIN LISPRO 100 UNIT/ML 3 ML VIAL SUBCUT SCH ×4 (09:06→22:32)
--- NOTE | 2018-12-23 15:26 | PDOC PROGRESS REPORT ---
Subjective Progress Note for:: 12/23/18 Subjective:: This is unfortunate 43 years old black male patient with past medical history of hypertension, obesity, type 2 diabetes mellitus, anemia presented with chief complaint of left foot pain and swelling. Patient reports this about 2 months ago he had a small cut and he treated himself with topical antibiotics. Of note patient had right BKA about 7 years ago. He states the wound is progressively increasing and draining. Patient has leukocytosis and fever of 101. X-ray of the foot reported as markedly abnormal appearance of the foot; the appearance of subcutaneous gas with extensive osseous erosions and periosteal reaction is consistent with chronic osteomyelitis. Clinically looks patient has acute on chronic osteomyelitis. Because of the fever and leukocytosis. Patient evaluated by surgical team and does not seem medical management will salvage the left foot and recommended left BKA. Patient also found to have profound anemia with hemoglobin of 5.4 for which she transfused with 2 units of packed RBC. 12/11/2018: Patient seen and examined while resting in bed. He does not have any fever nausea or vomiting. He complains of pain at the surgical site. His labs reviewed at admission his hemoglobin was 5.4 and after 2 units of PRBC increased to 8.2 today it is 7.6. His ESR is 120. I will transfuse with 1 unit of PRBC and I will discontinue Zosyn and vancomycin after 24 hours since the septic focus has been removed. 12/12/2018: Patient seen and examined while resting in bed. He is awake alert oriented. He reports this the pain at the surgical site is improving. He does not have fever, nausea or vomiting. He eats well. His white cell count slightly increased. He is 2 bottles of blood cultures are positive for gram- positive cocci in chains. The final report of the blood cultures pending. And blood culture repeat is ordered. I will keep his antibiotics until the final report of the blood culture. 12/13/2018: Patient seen while enjoying his breakfast. He does not have any nausea vomiting fever. His white cell count is trending down. Repeat blood culture result is pending. 12/14/2018: No significant change overnight. No new complaint. 12/20/2018: Patient seen resting in bed comfortably. No adverse events overnig ht. Patient has been awaiting placement. 12/21/2018: Patient does not have new complaint. He has unexplained leukocytosis. 12/23/2018: No significant change overnight. Reason For Visit: SEPSIS, LLE OSTEMEYELITIS, ANEMIA Physical Exam Vital Signs: Temp Pulse Resp BP Pulse Ox 98.3 F 94 16 136/77 H 97 12/23/18 04:03 12/23/18 07:00 12/23/18 04:03 12/23/18 04:03 12/23/18 04:03 Intake & Output 12/22/18 12/23/18 12/24/18 06:59 06:59 06:59 Intake Total 1666 1216 Output Total 2400 5494 Balance -928 -6750 Weight 109.3 kg 108 kg Results Laboratory Results: 12/22/18 05:57 12/19/18 10:35 Impressions: Chest X-Ray 12/09/18 18:44 IMPRESSION: NO ACUTE RADIOGRAPHIC FINDING IN THE CHEST. Foot X-Ray 12/09/18 18:44 IMPRESSION: Markedly abnormal appearance of the foot; the appearance of subcutaneous gas with extensive osseous erosions and periosteal reaction is consistent with chronic osteomyelitis. Assessment and Plan - Diagnosis (1) Leukocytosis Is this a current diagnosis for this admission?: Yes Plan: His WBC was 26,000 yesterday today it is 13,000. (2) Gram-positive cocci bacteremia Is this a current diagnosis for this admission?: Yes Plan: Final report of the blood cultures pending. I will continue his antibiotics. (3) Acute on chronic osteomyelitis of L foot Is this a current diagnosis for this admission?: Yes Plan: Status post left BKA. He had a smooth postoperative course. I will discontinue vancomycin and Zosyn in the next 24 hours. 12/16/2018 patient been on vancomycin since 12-13 and also on Zosyn. 12/17/2018 left below the knee amputation was performed on 12/10/2018. Patient continues IV antibiotics day #4 12/18/2018 no further osteomyelitis of the left foot due to a below the knee amputation. 12/19/2018 we will repeat ABC today patient remains afebrile and normotensive (4) Microcytic anemia Is this a current diagnosis for this admission?: Yes Plan: His latest hemoglobin is 7.6. I will transfuse him with 1 unit of packed RBC. (5) Type 2 diabetes mellitus Is this a current diagnosis for this admission?: Yes Plan: His hemoglobin A1c 6.2. (6) Hypertension Qualifiers: Hypertension type: essential hypertension Qualified Code(s): I10 - Essential (primary) hypertension Is this a current diagnosis for this admission?: Yes
[2018-12-23] MEDS: INSULIN GLARGINE,HUM.REC.ANLOG 1,000 UNIT/10 ML VIAL SUBCUT SCH (22:30)
[2018-12-24] MEDS: HEPARIN SOD (PORCINE) 5,000 UNIT/ML 1 ML VIAL SUBCUT SCH ×3 (06:07→22:53)
[2018-12-24] MEDS: GABAPENTIN 300 MG CAPSULE PO SCH ×3 (06:07→22:54)
[2018-12-24] MEDS: INSULIN LISPRO 100 UNIT/ML 3 ML VIAL SUBCUT SCH ×4 (08:51→22:54)
--- NOTE | 2018-12-24 13:59 | PDOC PROGRESS REPORT ---
Subjective Progress Note for:: 12/24/18 Subjective:: This is unfortunate 43 years old black male patient with past medical history of hypertension, obesity, type 2 diabetes mellitus, anemia presented with chief complaint of left foot pain and swelling. Patient reports this about 2 months ago he had a small cut and he treated himself with topical antibiotics. Of note patient had right BKA about 7 years ago. He states the wound is progressively increasing and draining. Patient has leukocytosis and fever of 101. X-ray of the foot reported as markedly abnormal appearance of the foot; the appearance of subcutaneous gas with extensive osseous erosions and periosteal reaction is consistent with chronic osteomyelitis. Clinically looks patient has acute on chronic osteomyelitis. Because of the fever and leukocytosis. Patient evaluated by surgical team and does not seem medical management will salvage the left foot and recommended left BKA. Patient also found to have profound anemia with hemoglobin of 5.4 for which she transfused with 2 units of packed RBC. 12/11/2018: Patient seen and examined while resting in bed. He does not have any fever nausea or vomiting. He complains of pain at the surgical site. His labs reviewed at admission his hemoglobin was 5.4 and after 2 units of PRBC increased to 8.2 today it is 7.6. His ESR is 120. I will transfuse with 1 unit of PRBC and I will discontinue Zosyn and vancomycin after 24 hours since the septic focus has been removed. 12/12/2018: Patient seen and examined while resting in bed. He is awake alert oriented. He reports this the pain at the surgical site is improving. He does not have fever, nausea or vomiting. He eats well. His white cell count slightly increased. He is 2 bottles of blood cultures are positive for gram- positive cocci in chains. The final report of the blood cultures pending. And blood culture repeat is ordered. I will keep his antibiotics until the final report of the blood culture. 12/13/2018: Patient seen while enjoying his breakfast. He does not have any nausea vomiting fever. His white cell count is trending down. Repeat blood culture result is pending. 12/14/2018: No significant change overnight. No new complaint. 12/20/2018: Patient seen resting in bed comfortably. No adverse events overnig ht. Patient has been awaiting placement. 12/21/2018: Patient does not have new complaint. He has unexplained leukocytosis. 12/23/2018: No significant change overnight. 12/24/2018: Patient seen while he is enjoying his breakfast this morning. No new complaints. Reason For Visit: SEPSIS, LLE OSTEMEYELITIS, ANEMIA Physical Exam Vital Signs: Temp Pulse Resp BP Pulse Ox 97.9 F 98 16 135/79 H 94 12/24/18 05:05 12/24/18 07:00 12/24/18 05:05 12/24/18 05:05 12/24/18 05:05 Intake & Output 12/23/18 12/24/18 12/25/18 06:59 06:59 06:59 Intake Total 1216 990 Output Total 4770 7715 Balance -4714 -4172 Weight 108 kg 105.7 kg Results Laboratory Results: 12/22/18 05:57 12/19/18 10:35 Impressions: Chest X-Ray 12/09/18 18:44 IMPRESSION: NO ACUTE RADIOGRAPHIC FINDING IN THE CHEST. Foot X-Ray 12/09/18 18:44 IMPRESSION: Markedly abnormal appearance of the foot; the appearance of subcutaneous gas with extensive osseous erosions and periosteal reaction is consistent with chronic osteomyelitis. Assessment and Plan - Diagnosis (1) Leukocytosis Is this a current diagnosis for this admission?: Yes Plan: His WBC was 26,000 yesterday today it is 13,000. (2) Gram-positive cocci bacteremia Is this a current diagnosis for this admission?: Yes Plan: Final report of the blood cultures pending. I will continue his antibiotics. (3) Acute on chronic osteomyelitis of L foot Is this a current diagnosis for this admission?: Yes Plan: Status post left BKA. He had a smooth postoperative course. I will discontinue vancomycin and Zosyn in the next 24 hours. 12/16/2018 patient been on vancomycin since 12-13 and also on Zosyn. 12/17/2018 left below the knee amputation was performed on 12/10/2018. Patient continues IV antibiotics day #4 12/18/2018 no further osteomyelitis of the left foot due to a below the knee amputation. 12/19/2018 we will repeat ABC today patient remains afebrile and normotensive (4) Microcytic anemia Is this a current diagnosis for this admission?: Yes Plan: His latest hemoglobin is 7.6. I will transfuse him with 1 unit of packed RBC. (5) Type 2 diabetes mellitus Is this a current diagnosis for this admission?: Yes Plan: His hemoglobin A1c 6.2. (6) Hypertension Qualifiers: Hypertension type: essential hypertension Qualified Code(s): I10 - Essential (primary) hypertension Is this a current diagnosis for this admission?: Yes
[2018-12-24] MEDS: INSULIN GLARGINE,HUM.REC.ANLOG 1,000 UNIT/10 ML VIAL SUBCUT SCH (22:53)
[2018-12-25] MEDS: HEPARIN SOD (PORCINE) 5,000 UNIT/ML 1 ML VIAL SUBCUT SCH ×3 (05:35→21:56)
[2018-12-25] MEDS: GABAPENTIN 300 MG CAPSULE PO SCH ×3 (05:36→21:56)
[2018-12-25] MEDS: INSULIN LISPRO 100 UNIT/ML 3 ML VIAL SUBCUT SCH ×4 (09:55→21:56)
--- NOTE | 2018-12-25 14:28 | PDOC PROGRESS REPORT ---
Subjective Progress Note for:: 12/25/18 Subjective:: This is unfortunate 43 years old black male patient with past medical history of hypertension, obesity, type 2 diabetes mellitus, anemia presented with chief complaint of left foot pain and swelling. Patient reports this about 2 months ago he had a small cut and he treated himself with topical antibiotics. Of note patient had right BKA about 7 years ago. He states the wound is progressively increasing and draining. Patient has leukocytosis and fever of 101. X-ray of the foot reported as markedly abnormal appearance of the foot; the appearance of subcutaneous gas with extensive osseous erosions and periosteal reaction is consistent with chronic osteomyelitis. Clinically looks patient has acute on chronic osteomyelitis. Because of the fever and leukocytosis. Patient evaluated by surgical team and does not seem medical management will salvage the left foot and recommended left BKA. Patient also found to have profound anemia with hemoglobin of 5.4 for which she transfused with 2 units of packed RBC. 12/11/2018: Patient seen and examined while resting in bed. He does not have any fever nausea or vomiting. He complains of pain at the surgical site. His labs reviewed at admission his hemoglobin was 5.4 and after 2 units of PRBC increased to 8.2 today it is 7.6. His ESR is 120. I will transfuse with 1 unit of PRBC and I will discontinue Zosyn and vancomycin after 24 hours since the septic focus has been removed. 12/12/2018: Patient seen and examined while resting in bed. He is awake alert oriented. He reports this the pain at the surgical site is improving. He does not have fever, nausea or vomiting. He eats well. His white cell count slightly increased. He is 2 bottles of blood cultures are positive for gram- positive cocci in chains. The final report of the blood cultures pending. And blood culture repeat is ordered. I will keep his antibiotics until the final report of the blood culture. 12/13/2018: Patient seen while enjoying his breakfast. He does not have any nausea vomiting fever. His white cell count is trending down. Repeat blood culture result is pending. 12/14/2018: No significant change overnight. No new complaint. 12/20/2018: Patient seen resting in bed comfortably. No adverse events overnig ht. Patient has been awaiting placement. 12/21/2018: Patient does not have new complaint. He has unexplained leukocytosis. 12/23/2018: No significant change overnight. 12/24/2018: Patient seen while he is enjoying his breakfast this morning. No new complaints. 12/25/2018: No significant change overnight. Still patient has been awaiting placement. Reason For Visit: SEPSIS, LLE OSTEMEYELITIS, ANEMIA Physical Exam Vital Signs: Temp Pulse Resp BP Pulse Ox 98.2 F 95 16 149/89 H 96 12/25/18 03:59 12/25/18 11:24 12/25/18 11:24 12/25/18 11:24 12/25/18 11:24 Intake & Output 12/24/18 12/25/18 12/26/18 06:59 06:59 06:59 Intake Total 990 1440 Output Total 3705 2380 Balance -3435 -940 Weight 105.7 kg 104.3 kg Results Laboratory Results: 12/22/18 05:57 12/19/18 10:35 Impressions: Chest X-Ray 12/09/18 18:44 IMPRESSION: NO ACUTE RADIOGRAPHIC FINDING IN THE CHEST. Foot X-Ray 12/09/18 18:44 IMPRESSION: Markedly abnormal appearance of the foot; the appearance of subcutaneous gas with extensive osseous erosions and periosteal reaction is consistent with chronic osteomyelitis. Assessment and Plan - Diagnosis (1) Leukocytosis Is this a current diagnosis for this admission?: Yes Plan: His WBC was 26,000 yesterday today it is 13,000. (2) Gram-positive cocci bacteremia Is this a current diagnosis for this admission?: Yes Plan: Final report of the blood cultures pending. I will continue his antibiotics. (3) Acute on chronic osteomyelitis of L foot Is this a current diagnosis for this admission?: Yes Plan: Status post left BKA. He had a smooth postoperative course. I will discontinue vancomycin and Zosyn in the next 24 hours. 12/16/2018 patient been on vancomycin since 12-13 and also on Zosyn. 12/17/2018 left below the knee amputation was performed on 12/10/2018. Patient continues IV antibiotics day #4 12/18/2018 no further osteomyelitis of the left foot due to a below the knee amputation. 12/19/2018 we will repeat ABC today patient remains afebrile and normotensive (4) Microcytic anemia Is this a current diagnosis for this admission?: Yes Plan: His latest hemoglobin is 7.6. I will transfuse him with 1 unit of packed RBC. (5) Type 2 diabetes mellitus Is this a current diagnosis for this admission?: Yes Plan: His hemoglobin A1c 6.2. (6) Hypertension Qualifiers: Hypertension type: essential hypertension Qualified Code(s): I10 - Essential (primary) hypertension Is this a current diagnosis for this admission?: Yes Plan: Review his home medications and adjust accordingly. patient's blood pressures are running approximately 140/70 distantly patient was taking Coreg 12.5 mg every 12 hours and Prinivil 10 mg daily 12/17/2018 patient's blood pressures are well controlled at approximately 146/76, on the above medications listed 12/18/2018 he is doing well on blood pressure medications 12/19/2018 continues his Coreg 12.5 mg 12 hours and Prinivil 10 mg daily. Blood pressures controlled
[2018-12-25] MEDS: INSULIN GLARGINE,HUM.REC.ANLOG 1,000 UNIT/10 ML VIAL SUBCUT SCH (21:57)
[2018-12-26] MEDS: HEPARIN SOD (PORCINE) 5,000 UNIT/ML 1 ML VIAL SUBCUT SCH ×3 (06:04→21:51)
[2018-12-26] MEDS: GABAPENTIN 300 MG CAPSULE PO SCH ×3 (06:04→21:51)
[2018-12-26] MEDS: INSULIN LISPRO 100 UNIT/ML 3 ML VIAL SUBCUT SCH ×4 (10:30→21:51)
--- NOTE | 2018-12-26 14:47 | PDOC PROGRESS REPORT ---
Subjective Progress Note for:: 12/26/18 Subjective:: This is unfortunate 43 years old black male patient with past medical history of hypertension, obesity, type 2 diabetes mellitus, anemia presented with chief complaint of left foot pain and swelling. Patient reports this about 2 months ago he had a small cut and he treated himself with topical antibiotics. Of note patient had right BKA about 7 years ago. He states the wound is progressively increasing and draining. Patient has leukocytosis and fever of 101. X-ray of the foot reported as markedly abnormal appearance of the foot; the appearance of subcutaneous gas with extensive osseous erosions and periosteal reaction is consistent with chronic osteomyelitis. Clinically looks patient has acute on chronic osteomyelitis. Because of the fever and leukocytosis. Patient evaluated by surgical team and does not seem medical management will salvage the left foot and recommended left BKA. Patient also found to have profound anemia with hemoglobin of 5.4 for which she transfused with 2 units of packed RBC. 12/11/2018: Patient seen and examined while resting in bed. He does not have any fever nausea or vomiting. He complains of pain at the surgical site. His labs reviewed at admission his hemoglobin was 5.4 and after 2 units of PRBC increased to 8.2 today it is 7.6. His ESR is 120. I will transfuse with 1 unit of PRBC and I will discontinue Zosyn and vancomycin after 24 hours since the septic focus has been removed. 12/12/2018: Patient seen and examined while resting in bed. He is awake alert oriented. He reports this the pain at the surgical site is improving. He does not have fever, nausea or vomiting. He eats well. His white cell count slightly increased. He is 2 bottles of blood cultures are positive for gram- positive cocci in chains. The final report of the blood cultures pending. And blood culture repeat is ordered. I will keep his antibiotics until the final report of the blood culture. 12/13/2018: Patient seen while enjoying his breakfast. He does not have any nausea vomiting fever. His white cell count is trending down. Repeat blood culture result is pending. 12/14/2018: No significant change overnight. No new complaint. 12/20/2018: Patient seen resting in bed comfortably. No adverse events overnig ht. Patient has been awaiting placement. 12/21/2018: Patient does not have new complaint. He has unexplained leukocytosis. 12/23/2018: No significant change overnight. 12/24/2018: Patient seen while he is enjoying his breakfast this morning. No new complaints. 12/25/2018: No significant change overnight. Still patient has been awaiting placement. 12/26/2018: No adverse event overnight. No new complaint. Patient has been awaiting placement. Reason For Visit: SEPSIS, LLE OSTEMEYELITIS, ANEMIA Physical Exam Vital Signs: Temp Pulse Resp BP Pulse Ox 98.1 F 103 H 19 136/88 H 97 12/26/18 03:54 12/26/18 14:00 12/26/18 03:54 12/26/18 03:54 12/26/18 03:54 Intake & Output 12/25/18 12/26/18 12/27/18 06:59 06:59 06:59 Intake Total 1440 902 480 Output Total 2380 2200 Balance -940 -1298 480 Weight 104.3 kg 103.9 kg Results Laboratory Results: 12/22/18 05:57 12/19/18 10:35 Impressions: Chest X-Ray 12/09/18 18:44 IMPRESSION: NO ACUTE RADIOGRAPHIC FINDING IN THE CHEST. Foot X-Ray 12/09/18 18:44 IMPRESSION: Markedly abnormal appearance of the foot; the appearance of subcutaneous gas with extensive osseous erosions and periosteal reaction is consistent with chronic osteomyelitis. Assessment and Plan - Diagnosis (1) Leukocytosis Is this a current diagnosis for this admission?: Yes Plan: His WBC was 26,000 yesterday today it is 13,000. (2) Gram-positive cocci bacteremia Is this a current diagnosis for this admission?: Yes Plan: Final report of the blood cultures pending. I will continue his antibiotics. (3) Acute on chronic osteomyelitis of L foot Is this a current diagnosis for this admission?: Yes Plan: Status post left BKA. He had a smooth postoperative course. I will discontinue vancomycin and Zosyn in the next 24 hours. 12/16/2018 patient been on vancomycin since 12-13 and also on Zosyn. 12/17/2018 left below the knee amputation was performed on 12/10/2018. Patient continues IV antibiotics day #4 12/18/2018 no further osteomyelitis of the left foot due to a below the knee amputation. 12/19/2018 we will repeat ABC today patient remains afebrile and normotensive (4) Microcytic anemia Is this a current diagnosis for this admission?: Yes Plan: His latest hemoglobin is 7.6. I will transfuse him with 1 unit of packed RBC. (5) Type 2 diabetes mellitus Is this a current diagnosis for this admission?: Yes Plan: His hemoglobin A1c 6.2. (6) Hypertension Qualifiers: Hypertension type: essential hypertension Qualified Code(s): I10 - Essential (primary) hypertension Is this a current diagnosis for this admission?: Yes Plan: Review his home medications and adjust accordingly. patient's blood pressures are running approximately 140/70 distantly patient was taking Coreg 12.5 mg every 12 hours and Prinivil 10 mg daily 12/17/2018 patient's blood pressures are well controlled at approximately 146/76, on the above medications listed 12/18/2018 he is doing well on blood pressure medications 12/19/2018 continues his Coreg 12.5 mg 12 hours and Prinivil 10 mg daily. Blood pressures controlled
[2018-12-26] MEDS: INSULIN GLARGINE,HUM.REC.ANLOG 1,000 UNIT/10 ML VIAL SUBCUT SCH (21:51)
[2018-12-27] MEDS: HEPARIN SOD (PORCINE) 5,000 UNIT/ML 1 ML VIAL SUBCUT SCH ×3 (05:53→21:53)
[2018-12-27] MEDS: GABAPENTIN 300 MG CAPSULE PO SCH ×3 (05:53→21:54)
[2018-12-27] MEDS: INSULIN LISPRO 100 UNIT/ML 3 ML VIAL SUBCUT SCH ×4 (08:03→21:52)
--- NOTE | 2018-12-27 13:33 | PDOC PROGRESS REPORT ---
Subjective Progress Note for:: 12/27/18 Subjective:: This is unfortunate 43 years old black male patient with past medical history of hypertension, obesity, type 2 diabetes mellitus, anemia presented with chief complaint of left foot pain and swelling. Patient reports this about 2 months ago he had a small cut and he treated himself with topical antibiotics. Of note patient had right BKA about 7 years ago. He states the wound is progressively increasing and draining. Patient has leukocytosis and fever of 101. X-ray of the foot reported as markedly abnormal appearance of the foot; the appearance of subcutaneous gas with extensive osseous erosions and periosteal reaction is consistent with chronic osteomyelitis. Clinically looks patient has acute on chronic osteomyelitis. Because of the fever and leukocytosis. Patient evaluated by surgical team and does not seem medical management will salvage the left foot and recommended left BKA. Patient also found to have profound anemia with hemoglobin of 5.4 for which she transfused with 2 units of packed RBC. 12/11/2018: Patient seen and examined while resting in bed. He does not have any fever nausea or vomiting. He complains of pain at the surgical site. His labs reviewed at admission his hemoglobin was 5.4 and after 2 units of PRBC increased to 8.2 today it is 7.6. His ESR is 120. I will transfuse with 1 unit of PRBC and I will discontinue Zosyn and vancomycin after 24 hours since the septic focus has been removed. 12/12/2018: Patient seen and examined while resting in bed. He is awake alert oriented. He reports this the pain at the surgical site is improving. He does not have fever, nausea or vomiting. He eats well. His white cell count slightly increased. He is 2 bottles of blood cultures are positive for gram- positive cocci in chains. The final report of the blood cultures pending. And blood culture repeat is ordered. I will keep his antibiotics until the final report of the blood culture. 12/13/2018: Patient seen while enjoying his breakfast. He does not have any nausea vomiting fever. His white cell count is trending down. Repeat blood culture result is pending. 12/14/2018: No significant change overnight. No new complaint. 12/20/2018: Patient seen resting in bed comfortably. No adverse events overnig ht. Patient has been awaiting placement. 12/21/2018: Patient does not have new complaint. He has unexplained leukocytosis. 12/23/2018: No significant change overnight. 12/24/2018: Patient seen while he is enjoying his breakfast this morning. No new complaints. 12/25/2018: No significant change overnight. Still patient has been awaiting placement. 12/26/2018: No adverse event overnight. No new complaint. Patient has been awaiting placement. 12/27/2018: Patient has been awaiting placement. Reason For Visit: SEPSIS, LLE OSTEMEYELITIS, ANEMIA Physical Exam Vital Signs: Temp Pulse Resp BP Pulse Ox 98.2 F 98 18 103/83 99 12/27/18 04:00 12/27/18 12:00 12/27/18 12:00 12/27/18 12:00 12/27/18 12:00 Intake & Output 12/26/18 12/27/18 12/28/18 06:59 06:59 06:59 Intake Total 902 1062 240 Output Total 2200 2925 900 Balance -1298 -1863 -660 Weight 103.9 kg 103.8 kg Results Laboratory Results: 12/22/18 05:57 12/19/18 10:35 Impressions: Chest X-Ray 12/09/18 18:44 IMPRESSION: NO ACUTE RADIOGRAPHIC FINDING IN THE CHEST. Foot X-Ray 12/09/18 18:44 IMPRESSION: Markedly abnormal appearance of the foot; the appearance of subcutaneous gas with extensive osseous erosions and periosteal reaction is consistent with chronic osteomyelitis. Assessment and Plan - Diagnosis (1) Leukocytosis Is this a current diagnosis for this admission?: Yes Plan: His WBC was 26,000 yesterday today it is 13,000. (2) Gram-positive cocci bacteremia Is this a current diagnosis for this admission?: Yes Plan: Final report of the blood cultures pending. I will continue his antibiotics. (3) Acute on chronic osteomyelitis of L foot Is this a current diagnosis for this admission?: Yes Plan: Status post left BKA. He had a smooth postoperative course. I will discontinue vancomycin and Zosyn in the next 24 hours. 12/16/2018 patient been on vancomycin since 12-13 and also on Zosyn. 12/17/2018 left below the knee amputation was performed on 12/10/2018. Patient continues IV antibiotics day #4 12/18/2018 no further osteomyelitis of the left foot due to a below the knee amputation. 12/19/2018 we will repeat ABC today patient remains afebrile and normotensive (4) Microcytic anemia Is this a current diagnosis for this admission?: Yes Plan: His latest hemoglobin is 7.6. I will transfuse him with 1 unit of packed RBC. (5) Type 2 diabetes mellitus Is this a current diagnosis for this admission?: Yes Plan: His hemoglobin A1c 6.2. (6) Hypertension Qualifiers: Hypertension type: essential hypertension Qualified Code(s): I10 - Essential (primary) hypertension Is this a current diagnosis for this admission?: Yes Plan: Review his home medications and adjust accordingly. patient's blood pressures are running approximately 140/70 distantly patient was taking Coreg 12.5 mg every 12 hours and Prinivil 10 mg daily 12/17/2018 patient's blood pressures are well controlled at approximately 146/76, on the above medications listed 12/18/2018 he is doing well on blood pressure medications 12/19/2018 continues his Coreg 12.5 mg 12 hours and Prinivil 10 mg daily. Blood pressures controlled
[2018-12-27] MEDS: INSULIN GLARGINE,HUM.REC.ANLOG 1,000 UNIT/10 ML VIAL SUBCUT SCH (21:54)
[2018-12-28] MEDS: HEPARIN SOD (PORCINE) 5,000 UNIT/ML 1 ML VIAL SUBCUT SCH ×4 (05:38→21:10)
[2018-12-28] MEDS: GABAPENTIN 300 MG CAPSULE PO SCH ×4 (05:41→21:25)
[2018-12-28] MEDS: INSULIN LISPRO 100 UNIT/ML 3 ML VIAL SUBCUT SCH ×4 (08:36→21:20)
--- NOTE | 2018-12-28 13:25 | PDOC PROGRESS REPORT ---
Subjective Progress Note for:: 12/28/18 Subjective:: This is unfortunate 43 years old black male patient with past medical history of hypertension, obesity, type 2 diabetes mellitus, anemia presented with chief complaint of left foot pain and swelling. Patient reports this about 2 months ago he had a small cut and he treated himself with topical antibiotics. Of note patient had right BKA about 7 years ago. He states the wound is progressively increasing and draining. Patient has leukocytosis and fever of 101. X-ray of the foot reported as markedly abnormal appearance of the foot; the appearance of subcutaneous gas with extensive osseous erosions and periosteal reaction is consistent with chronic osteomyelitis. Clinically looks patient has acute on chronic osteomyelitis. Because of the fever and leukocytosis. Patient evaluated by surgical team and does not seem medical management will salvage the left foot and recommended left BKA. Patient also found to have profound anemia with hemoglobin of 5.4 for which she transfused with 2 units of packed RBC. 12/11/2018: Patient seen and examined while resting in bed. He does not have any fever nausea or vomiting. He complains of pain at the surgical site. His labs reviewed at admission his hemoglobin was 5.4 and after 2 units of PRBC increased to 8.2 today it is 7.6. His ESR is 120. I will transfuse with 1 unit of PRBC and I will discontinue Zosyn and vancomycin after 24 hours since the septic focus has been removed. 12/12/2018: Patient seen and examined while resting in bed. He is awake alert oriented. He reports this the pain at the surgical site is improving. He does not have fever, nausea or vomiting. He eats well. His white cell count slightly increased. He is 2 bottles of blood cultures are positive for gram- positive cocci in chains. The final report of the blood cultures pending. And blood culture repeat is ordered. I will keep his antibiotics until the final report of the blood culture. 12/13/2018: Patient seen while enjoying his breakfast. He does not have any nausea vomiting fever. His white cell count is trending down. Repeat blood culture result is pending. 12/14/2018: No significant change overnight. No new complaint. 12/20/2018: Patient seen resting in bed comfortably. No adverse events overnig ht. Patient has been awaiting placement. 12/21/2018: Patient does not have new complaint. He has unexplained leukocytosis. 12/23/2018: No significant change overnight. 12/24/2018: Patient seen while he is enjoying his breakfast this morning. No new complaints. 12/25/2018: No significant change overnight. Still patient has been awaiting placement. 12/26/2018: No adverse event overnight. No new complaint. Patient has been awaiting placement. 12/27/2018: Patient has been awaiting placement. 12/28/2018: No significant change overnight. Reason For Visit: SEPSIS, LLE OSTEMEYELITIS, ANEMIA Physical Exam Vital Signs: Temp Pulse Resp BP Pulse Ox 97.5 F 97 19 129/81 H 96 12/28/18 11:48 12/28/18 11:48 12/28/18 11:48 12/28/18 11:48 12/28/18 11:48 Intake & Output 12/27/18 12/28/18 12/29/18 06:59 06:59 06:59 Intake Total 1062 1160 480 Output Total 2925 2000 Balance -1863 -840 480 Weight 103.8 kg 101.5 kg Results Laboratory Results: 12/22/18 05:57 12/19/18 10:35 Impressions: Chest X-Ray 12/09/18 18:44 IMPRESSION: NO ACUTE RADIOGRAPHIC FINDING IN THE CHEST. Foot X-Ray 12/09/18 18:44 IMPRESSION: Markedly abnormal appearance of the foot; the appearance of subcutaneous gas with extensive osseous erosions and periosteal reaction is consistent with chronic osteomyelitis. Assessment and Plan - Diagnosis (1) Leukocytosis Is this a current diagnosis for this admission?: Yes Plan: His WBC was 26,000 yesterday today it is 13,000. (2) Gram-positive cocci bacteremia Is this a current diagnosis for this admission?: Yes Plan: Final report of the blood cultures pending. I will continue his antibiotics. (3) Acute on chronic osteomyelitis of L foot Is this a current diagnosis for this admission?: Yes Plan: Status post left BKA. He had a smooth postoperative course. I will discontinue vancomycin and Zosyn in the next 24 hours. 12/16/2018 patient been on vancomycin since 12-13 and also on Zosyn. 12/17/2018 left below the knee amputation was performed on 12/10/2018. Patient continues IV antibiotics day #4 12/18/2018 no further osteomyelitis of the left foot due to a below the knee amputation. 12/19/2018 we will repeat ABC today patient remains afebrile and normotensive (4) Microcytic anemia Is this a current diagnosis for this admission?: Yes Plan: His latest hemoglobin is 7.6. I will transfuse him with 1 unit of packed RBC. (5) Type 2 diabetes mellitus Is this a current diagnosis for this admission?: Yes Plan: His hemoglobin A1c 6.2. (6) Hypertension Qualifiers: Hypertension type: essential hypertension Qualified Code(s): I10 - Essential (primary) hypertension Is this a current diagnosis for this admission?: Yes
[2018-12-28] MEDS ORDERED: ONDANSETRON HCL INJ/PF 4 MG/2 ML SDV IV PRN (13:58)
[2018-12-28] MEDS ORDERED: ACETAMINOPHEN 325 MG TABLET PO PRN (13:59)
[2018-12-28] MEDS ORDERED: DEXTROSE 40% GEL 15 GM TUBE PO PRN ×2 (13:59→14:00)
[2018-12-28] MEDS ORDERED: GLUCAGON,HUMAN RECOMB 1 MG INJ IM PRN (13:59)
[2018-12-28] MEDS ORDERED: DEXTROSE 50%-WATER 25 GM/50 ML DISP.SYRIN IV PRN ×2 (14:00)
[2018-12-28] MEDS: INSULIN GLARGINE,HUM.REC.ANLOG 1,000 UNIT/10 ML VIAL SUBCUT SCH (21:25)
[2018-12-29] MEDS: HEPARIN SOD (PORCINE) 5,000 UNIT/ML 1 ML VIAL SUBCUT SCH ×3 (05:36→21:17)
[2018-12-29] MEDS: GABAPENTIN 300 MG CAPSULE PO SCH ×3 (05:41→21:21)
[2018-12-29] MEDS: INSULIN LISPRO 100 UNIT/ML 3 ML VIAL SUBCUT SCH ×4 (12:14→21:17)
--- NOTE | 2018-12-29 12:23 | PDOC PROGRESS REPORT ---
Subjective Progress Note for:: 12/29/18 Subjective:: Patient is resting comfortably. No complaints this afternoon. Reason For Visit: SEPSIS, LLE OSTEMEYELITIS, ANEMIA Physical Exam Vital Signs: Temp Pulse Resp BP Pulse Ox 98.0 F 102 H 16 123/88 H 98 12/29/18 08:03 12/29/18 08:03 12/29/18 08:03 12/29/18 08:03 12/29/18 08:03 Intake & Output 12/28/18 12/29/18 12/30/18 06:59 06:59 06:59 Intake Total 1160 840 Output Total 1999 1300 Balance -840 -460 Weight 101.5 kg 100.8 kg General appearance: PRESENT: no acute distress, cooperative, well-developed Head exam: PRESENT: atraumatic, normocephalic Mouth exam: PRESENT: moist, tongue midline Respiratory exam: PRESENT: clear to auscultation gino, symmetrical, unlabored. ABSENT: rales, rhonchi, tachypnea, wheezes Cardiovascular exam: PRESENT: RRR, +S1, +S2 GI/Abdominal exam: PRESENT: normal bowel sounds, soft. ABSENT: distended, guarding, tenderness Rectal exam: PRESENT: deferred Musculoskeletal exam: PRESENT: other - Bilateral below-knee amputations Neurological exam: PRESENT: alert, awake, oriented to person, oriented to place, oriented to time, oriented to situation, CN II-XII grossly intact Psychiatric exam: PRESENT: appropriate affect. ABSENT: agitated, anxious Focused psych exam: ABSENT: delusional, restlessness Skin exam: PRESENT: other - Thick callus on the right stump. There is a crack through the middle of the callus.. ABSENT: abrasion Results Laboratory Results: 12/22/18 05:57 12/19/18 10:35 Impressions: Chest X-Ray 12/09/18 18:44 IMPRESSION: NO ACUTE RADIOGRAPHIC FINDING IN THE CHEST. Foot X-Ray 12/09/18 18:44 IMPRESSION: Markedly abnormal appearance of the foot; the appearance of subcutaneous gas with extensive osseous erosions and periosteal reaction is consistent with chronic osteomyelitis. Assessment and Plan - Diagnosis (1) Leukocytosis Qualifiers: Leukocytosis type: unspecified Qualified Code(s): D72.829 - Elevated white blood cell count, unspecified Is this a current diagnosis for this admission?: Yes Plan: The patient initially came in with high white count. The white blood cell count peaked at 26,000 and is improving with antibiotic therapy. Elevated white blood cell count is secondary to the osteomyelitis. (2) Gram-positive cocci bacteremia Is this a current diagnosis for this admission?: Yes Plan: Final culture results revealed Streptococcus mitis in both sets of blood culture bottles. The patient was placed on vancomycin and Zosyn for the osteomyelitis. He did continue antibiotic therapy after the amputation. His white blood cell count is much improved and is down to 13.8. (3) Acute on chronic osteomyelitis of L foot Is this a current diagnosis for this admission?: Yes Plan: The patient underwent left below-knee amputation last month. 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 The patient will benefit from ongoing physical therapy and eventually working with an stage builder for a prosthetic leg. (4) Type 2 diabetes mellitus Qualifiers: Diabetes mellitus senior care insulin use: with salvage determiner use Is this a current diagnosis for this admission?: Yes Plan: Continue the Lantus and Humalog sliding scale. Adjust Lantus based on sliding scale requirements. (5) Hypertension Qualifiers: Hypertension type: essential hypertension Qualified Code(s): I10 - Essential (primary) hypertension Is this a current diagnosis for this admission?: Yes Plan: The patient is currently not on any antihypertensive medications. We will continue to monitor his blood pressure and add medications if indicated. - Time Time Spent with patient: 15-24 minutes Medications reviewed and adjusted accordingly: Yes
[2018-12-29] MEDS: INSULIN GLARGINE,HUM.REC.ANLOG 1,000 UNIT/10 ML VIAL SUBCUT SCH (21:21)
[2018-12-30] MEDS: GABAPENTIN 300 MG CAPSULE PO SCH ×3 (05:56→22:12)
[2018-12-30] MEDS: HEPARIN SOD (PORCINE) 5,000 UNIT/ML 1 ML VIAL SUBCUT SCH ×3 (05:56→22:12)
[2018-12-30] MEDS: INSULIN LISPRO 100 UNIT/ML 3 ML VIAL SUBCUT SCH ×4 (08:00→22:13)
[2018-12-30 08:23] LABS: ABSOLUTE BASOPHILS # (AUTO) 0.1 10^3/uL (0.0-0.2); ABSOLUTE EOSINOPHILS # (AUTO) 0.6 10^3/uL (0.0-0.6); ABSOLUTE LYMPHOCYTES (AUTO) 1.8 10^3/uL (0.5-4.7); ABSOLUTE MONOCYTES (AUTO) 0.4 10^3/uL (0.1-1.4); ABSOLUTE NEUT (AUTO) 4.2 10^3/uL (1.7-8.2); BASOPHILS % (AUTO) 0.9 % (0-2); EOSINOPHILS % (AUTO) 8.3 % (0-6); HEMATOCRIT 35.1 % (37.9-51.0); HEMOGLOBIN 11.3 g/dL (13.5-17.0); LYMPHOCYTES % (AUTO) 25.9 % (13-45); MEAN CORPUSCULAR HEMOGLOBIN 26.5 pg (27.0-33.4); MEAN CORPUSCULAR HGB CONC 32.1 g/dL (32.0-36.0); MEAN CORPUSCULAR VOLUME 83 fl (80-97); MONOCYTES % (AUTO) 5.7 % (3-13); PLATELET COUNT 316 10^3/uL (150-450); RED BLOOD COUNT 4.25 10^6/uL (4.35-5.55); RED CELL DISTRIBUTION WIDTH 20.9 % (11.5-14.0); SEGMENTED NEUTROPHILS % (AUTO) 59.2 % (42-78); TOTAL CELLS COUNTED % (AUTO) 100 %; WHITE BLOOD COUNT 7.1 10^3/uL (4.0-10.5)
[2018-12-30 08:44] LABS: ALBUMIN 4.3 g/dL (3.5-5.0); ALKALINE PHOSPHATASE 52 U/L (38-126); ANION GAP 12 (5-19); ASPARTATE AMINO TRANSFERASE 21 U/L (17-59); BILIRUBIN,DIRECT 0.5 mg/dL (0.0-0.4); BLOOD UREA NITROGEN 23 mg/dL (7-20); CALCIUM 10.6 mg/dL (8.4-10.2); CARBON DIOXIDE 28 mmol/L (22-30); CHLORIDE 99 mmol/L (98-107); GLUCOSE 193 mg/dL (75-110); POTASSIUM 4.3 mmol/L (3.6-5.0); TOTAL PROTEIN 9.6 g/dL (6.3-8.2)
--- NOTE | 2018-12-30 10:25 | PDOC PROGRESS REPORT ---
Subjective Progress Note for:: 12/30/18 Subjective:: 43 year old male who is a poor historian with a history of insulin-dependent diabetes who was not an ideal regimen and who also has a history of a right BKA 7 years ago because his foot got infected who presents with several weeks of left foot swelling. He said that he had a cut on his foot they noticed a couple of months ago and he tried to treated himself with antibiotic ointment. It is progressed since then. He has had a lot of swelling in that foot. He has multiple oozing ulcers on the foot. He has diminished sensation in the foot. He apparently had a fever for EMS greater than 101 F. His hemoglobin was also noted to be substantially low, but he denies any history of melena, hematochezia, hematemesis, hematuria, or nosebleed. He said he is also been having a lot of diarrhea recently. He has not noted it to be particularly watery or bloody, just very loose. He does not have any abdominal pain. Surgery has already seen him in the ED. He is being admitted for stabilization prior to surgery. [id number]-old male with history of insulin-dependent diabetes mellitus and history of right BKA admitted for the left foot swelling. Status post left BKA. Waiting for placement. No acute events in the last 24 hours. Latest blood cultures are negative. Reason For Visit: SEPSIS, LLE OSTEMEYELITIS, ANEMIA Physical Exam Vital Signs: Temp Pulse Resp BP Pulse Ox 97.8 F 98 16 125/79 96 12/30/18 07:54 12/30/18 07:54 12/30/18 07:54 12/30/18 07:54 12/30/18 07:54 Intake & Output 12/29/18 12/30/18 12/31/18 06:59 06:59 06:59 Intake Total 840 1000 Output Total 1300 1800 400 Balance -460 -800 -400 Weight 100.8 kg 100.3 kg General appearance: PRESENT: no acute distress, cooperative Head exam: PRESENT: atraumatic Eye exam: PRESENT: PERRLA Mouth exam: PRESENT: moist, tongue midline Teeth exam: PRESENT: poor dentation Neck exam: ABSENT: carotid bruit, JVD, lymphadenopathy, thyromegaly Respiratory exam: PRESENT: decreased breath sounds Pulses: PRESENT: normal dorsalis pedis pul GI/Abdominal exam: PRESENT: normal bowel sounds, soft. ABSENT: distended, guarding, mass, organolmegaly, rebound, tenderness Rectal exam: PRESENT: deferred Extremities exam: PRESENT: other - Patient has bilateral BKA. Neurological exam: PRESENT: alert, awake, oriented to person, oriented to place, oriented to time, oriented to situation, CN II-XII grossly intact. ABSENT: motor sensory deficit Psychiatric exam: PRESENT: appropriate affect, normal mood. ABSENT: homicidal ideation, suicidal ideation Results Laboratory Results: 12/30/18 08:10 12/30/18 08:10 12/30/18 12/30/18 08:10 08:10 WBC 7.1 RBC 4.25 L Hgb 11.3 L Hct 35.1 L MCV 83 MCH 26.5 L MCHC 32.1 RDW 20.9 H Plt Count 316 Seg Neutrophils % 59.2 Sodium 138.8 Potassium 4.3 Chloride 99 Carbon Dioxide 28 Anion Gap 12 BUN 23 H Creatinine 1.02 Est GFR ( Amer) > 60 Glucose 193 H Calcium 10.6 H Magnesium 1.6 Total Bilirubin 1.0 AST 21 Alkaline Phosphatase 52 Total Protein 9.6 H Albumin 4.3 Impressions: Chest X-Ray 12/09/18 18:44 IMPRESSION: NO ACUTE RADIOGRAPHIC FINDING IN THE CHEST. Foot X-Ray 12/09/18 18:44 IMPRESSION: Markedly abnormal appearance of the foot; the appearance of subcutaneous gas with extensive osseous erosions and periosteal reaction is consistent with chronic osteomyelitis. Assessment and Plan - Diagnosis (1) Leukocytosis Qualifiers: Leukocytosis type: unspecified Qualified Code(s): D72.829 - Elevated white blood cell count, unspecified Is this a current diagnosis for this admission?: Yes Plan: The patient initially came in with high white count. The white blood cell count peaked at 26,000 and is improving with antibiotic therapy. Elevated white blood cell count is secondary to the osteomyelitis. 12/30/2018-WBC count today is 7.3 within normal range. Patient is presently off the antibiotics. (2) Acute on chronic osteomyelitis of L foot Is this a current diagnosis for this admission?: Yes Plan: The patient underwent left below-knee amputation last month. 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 The patient will benefit from ongoing physical therapy and eventually working with an sewer maintenance supervisor for a prosthetic leg. (3) Diabetic foot infection Is this a current diagnosis for this admission?: Yes Plan: 12/30/2018-patient admitted with osteomyelitis of the left leg status post left BKA. (4) Hypertension Qualifiers: Hypertension type: essential hypertension Qualified Code(s): I10 - Essential (primary) hypertension Is this a current diagnosis for this admission?: Yes Plan: The patient is currently not on any antihypertensive medications. We will continue to monitor his blood pressure and add medications if indicated. 12/30/2018-patient blood pressure today is 121/82. Stable. Not on antihypertensives today. (5) Type 2 diabetes mellitus Qualifiers: Diabetes mellitus mcfp insulin use: with mcfp use Is this a current diagnosis for this admission?: Yes Plan: Continue the Lantus and Humalog sliding scale. Adjust Lantus based on sliding scale requirements. 12/30/2018-patient latest blood sugar is 193. Patient is presently on insulin sliding scale before meals and at bedtime and Lantus 10 units at night. Plan is to continue the present management. (6) Gram-positive cocci bacteremia Is this a current diagnosis for this admission?: Yes Plan: Final culture results revealed Streptococcus mitis in both sets of blood culture bottles. The patient was placed on vancomycin and Zosyn for the osteomyelitis. He did continue antibiotic therapy after the amputation. His white blood cell count is much improved and is down to 13.8. 12/30/2018-cultures are positive for Streptococcus mitis. She was on vancomycin and Zosyn for osteomyelitis white cell count improved to 7.3 today. Presently he is not on antibiotics. - Time Time Spent with patient: 25-34 minutes Smoking Cessation Education: over 10 minutes Medications reviewed and adjusted accordingly: Yes Anticipated discharge: SNF
[2018-12-30] MEDS: INSULIN GLARGINE,HUM.REC.ANLOG 1,000 UNIT/10 ML VIAL SUBCUT SCH (22:14)
[2018-12-31] MEDS: GABAPENTIN 300 MG CAPSULE PO SCH (06:22)
[2018-12-31] MEDS: HEPARIN SOD (PORCINE) 5,000 UNIT/ML 1 ML VIAL SUBCUT SCH (06:22)
[2018-12-31] MEDS: INSULIN LISPRO 100 UNIT/ML 3 ML VIAL SUBCUT SCH ×2 (08:07→12:12)
--- NOTE | 2018-12-31 09:41 | PDOC DISCHARGE SUMMARY ---
General - Admit/Disc Date/PCP Admission Date/Primary Care Provider: 12/09/18 22:15 Discharge Date: 12/31/18 - Discharge Diagnosis (1) Leukocytosis Is this a current diagnosis for this admission?: Yes Summary: The patient initially came in with high white count. The white blood cell count peaked at 26,000 and is improving with antibiotic therapy. Elevated white blood cell count is secondary to the osteomyelitis. 12/30/2018-WBC count today is 7.3 within normal range. Patient is presently off the antibiotics. 12/31/2018-WBC count today 7100 stable. Afebrile. Patient is off the antibiotics for the last several days. Left BKA stump looks clean. He is going home with home health and home PT. (2) Acute on chronic osteomyelitis of L foot Is this a current diagnosis for this admission?: Yes Summary: The patient underwent left below-knee amputation last month. 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 The patient will benefit from ongoing physical therapy and eventually working with an in home baby sitter for a prosthetic leg. 12/31/2018-patient admitted with diabetic left foot with infection status post left BKA. Stump looks clean. Doretha are going to be removed today. Patient is going home at home health and home PT. Patient did not need any antibiotics at home. (3) Diabetic foot infection Is this a current diagnosis for this admission?: Yes (4) Hypertension Is this a current diagnosis for this admission?: Yes Summary: The patient is currently not on any antihypertensive medications. We will continue to monitor his blood pressure and add medications if indicated. 12/30/2018-patient blood pressure today is 121/82. Stable. Not on antihypertensives today. 12/31/2018-patient blood pressure today is 118/73. Stable. Patient advised to continue his home medications upon discharge. (5) Type 2 diabetes mellitus Is this a current diagnosis for this admission?: Yes Summary: Continue the Lantus and Humalog sliding scale. Adjust Lantus based on sliding scale requirements. 12/30/2018-patient latest blood sugar is 193. Patient is presently on insulin sliding scale before meals and at bedtime and Lantus 10 units at night. Plan is to continue the present management. 12/31/2018-patient latest blood sugar is 179. Prescription was given for insulin sliding scale Humalog and also prescription for Lantus 10 units at bedtime. Patient is advised to follow-up with primary care physician in 3 to 5 days. (6) Gram-positive cocci bacteremia Is this a current diagnosis for this admission?: Yes Summary: Final culture results revealed Streptococcus mitis in both sets of blood culture bottles. The patient was placed on vancomycin and Zosyn for the osteomyelitis. He did continue antibiotic therapy after the amputation. His white blood cell c ount is much improved and is down to 13.8. 12/30/2018-cultures are positive for Streptococcus mitis. She was on vancomycin and Zosyn for osteomyelitis white cell count improved to 7.3 today. Presently he is not on antibiotics. 12/31/2018-cultures are positive for Streptococcus mitis he was treated with vancomycin and Zosyn and repeat cultures are negative afebrile for the last 1 week. Patient is going home without antibiotics. - Additional Information Resuscitation Status: Full Code Discharge Diet: Diabetic Discharge Activity: Activity As Tolerated Prescriptions: Carvedilol [Coreg] 1 tab PO Q12 #60 tab Ferrous Sulfate 325 mg PO BID #60 tablet. Insulin Lispro [Humalog Insulin (Lispro) 100 unit/mL] 0 - 12 unit SUBCUT ACHS #2 vial Insulin Glargine,Hum.rec.anlog [Lantus Insulin 100 Unit/1 ml 10 ml] 10 unit SUBCUT QHS 30 Days #2 vial Gabapentin [Neurontin 300 mg Capsule] 300 mg PO Q8 #90 capsule Lisinopril [Prinivil 10 mg Tablet] 10 mg PO DAILY #30 tablet Home Medications: Carvedilol [Coreg] 1 tab PO Q12 #60 tab 12/15/18 Ferrous Sulfate 325 mg PO BID #60 tablet. 12/15/18 Lisinopril [Prinivil 10 mg Tablet] 10 mg PO DAILY #30 tablet 12/15/18 Gabapentin [Neurontin 300 mg Capsule] 300 mg PO Q8 #90 capsule 12/31/18 Insulin Glargine,Hum.rec.anlog [Lantus Insulin 100 Unit/1 ml 10 ml] 10 unit SUBCUT QHS 30 Days #2 vial 12/31/18 Insulin Lispro [Humalog Insulin (Lispro) 100 unit/mL] 0 - 12 unit SUBCUT ACHS #2 vial 12/31/18 History of Present Illness History of Present Illness: HANNAH CRUZ JR is a 43 year old male 43 year old male who is a poor historian with a history of insulin-dependent diabetes who was not an ideal regimen and who also has a history of a right BKA 7 years ago because his foot got infected who presents with several weeks of left foot swelling. He said that he had a cut on his foot they noticed a couple of months ago and he tried to treated himself with antibiotic ointment. It is progressed since then. He has had a lot of swelling in that foot. He has multiple oozing ulcers on the foot. He has diminished sensation in the foot. He apparently had a fever for EMS greater than 101 F. His hemoglobin was also noted to be substantially low, but he denies any history of melena, hematochezia, hematemesis, hematuria, or nosebleed. He said he is also been hav ing a lot of diarrhea recently. He has not noted it to be particularly watery or bloody, just very loose. He does not have any abdominal pain. Surgery has already seen him in the ED. He is being admitted for stabilization prior to surgery. 12/30/[id number]-old male with history of insulin-dependent diabetes mellitus and history of right BKA admitted for the left foot swelling. Status post left BKA. Waiting for placement. No acute events in the last 24 hours. Latest blood cultures are negative. Hospital Course Hospital Course: 43 year old male who is a poor historian with a history of insulin-dependent diabetes who was not an ideal regimen and who also has a history of a right BKA 7 years ago because his foot got infected who presents with several weeks of left foot swelling. He said that he had a cut on his foot they noticed a couple of months ago and he tried to treated himself with antibiotic ointment. It is progressed since then. He has had a lot of swelling in that foot. He has multiple oozing ulcers on the foot. He has diminished sensation in the foot. He apparently had a fever for EMS greater than 101 F. His hemoglobin was also noted to be substantially low, but he denies any history of melena, hematochezia, hematemesis, hematuria, or nosebleed. He said he is also been having a lot of diarrhea recently. He has not noted it to be particularly watery or bloody, just very loose. He does not have any abdominal pain. Surgery has already seen him in the ED. He is being admitted for stabilization prior to surgery. 12/[id number]-old male with history of insulin-dependent diabetes mellitus and history of right BKA admitted for the left foot swelling. Status post left BKA. Waiting for placement. No acute events in the last 24 hours. Latest blood cultures are negative. 12/31/[id number]-nzsl-old male with history of insulin dependent diabetes mellitus and history of right BKA admitted for a left foot infection status post left BKA done. The wound looks clean. He still have doretha present. Plan is to remove the doretha prior to discharge today after getting Jessica from Dr. Finn. Patient is going home on with home health. It is strongly advised to follow-up with his primary care physician and also with the surgical clinic in 7 to 10 days. Physical Exam Vital Signs: Temp Pulse Resp BP Pulse Ox 98.4 F 110 H 16 114/81 100 12/31/18 08:16 12/31/18 08:16 12/31/18 08:16 12/31/18 08:16 12/31/18 08:16 Intake & Output 12/30/18 12/31/18 01/01/19 06:59 06:59 06:59 Intake Total 1000 2383 Output Total 1800 1915 Balance -800 468 Weight 100.3 kg 103.1 kg General appearance: PRESENT: no acute distress, cooperative Head exam: PRESENT: atraumatic Eye exam: PRESENT: PERRLA Mouth exam: PRESENT: moist, tongue midline Teeth exam: PRESENT: poor dentation Neck exam: ABSENT: carotid bruit, JVD, lymphadenopathy, thyromegaly Respiratory exam: PRESENT: clear to auscultation gino. ABSENT: rales, rhonchi, wheezes Cardiovascular exam: PRESENT: RRR. ABSENT: diastolic murmur, rubs, systolic murmur GI/Abdominal exam: PRESENT: normal bowel sounds, soft. ABSENT: distended, guarding, mass, organolmegaly, rebound, tenderness Rectal exam: PRESENT: deferred Extremities exam: PRESENT: other - Bilateral BKA. Neurological exam: PRESENT: alert, awake, oriented to person, oriented to place, oriented to time, oriented to situation, CN II-XII grossly intact. ABSENT: motor sensory deficit Psychiatric exam: PRESENT: appropriate affect, normal mood. ABSENT: homicidal ideation, suicidal ideation Results Laboratory Results: 12/30/18 08:10 12/30/18 08:10 Impressions: Chest X-Ray 12/09/18 18:44 IMPRESSION: NO ACUTE RADIOGRAPHIC FINDING IN THE CHEST. Foot X-Ray 12/09/18 18:44 IMPRESSION: Markedly abnormal appearance of the foot; the appearance of subcutaneous gas with extensive osseous erosions and periosteal reaction is consistent with chronic osteomyelitis. Qualifiers - * PATIENT BEING DISCHARGED WITH ANY OF THE FOLLOWING DIAGNOSIS: No VTE patient discharged on overlapping Therapy?: No Acute Heart Failure - Is this a Heart Failure Patient?: No Plan Time Spent: Greater than 30 Minutes
[2018-12-31 10:11] VITALS: BP 126/85
== END 2018-12-31 12:58 | disposition home health service (06) | DRG 854 ==
LOC: ER 17:46 → EH 22:15 → 3S 23:57 → UNDODISIN 12-28 10:35
PROVIDERS: ADMIT Family Medicine; ATTEND Family Medicine
PROC: 30233N1 Transfusion of Nonautologous Red Blood Cells into Peripheral Vein, Percutaneous Approach (ICD-10-PCS; 2018-12-09)
PROC: 0Y6J0Z1 Detachment at Left Lower Leg, High, Open Approach (ICD-10-PCS; principal; 2018-12-10 14:15)
DX: A41.9 Sepsis, unspecified organism (principal); M86.172 Other acute osteomyelitis, left ankle and foot; M86.472 Chronic osteomyelitis with draining sinus, left ankle and foot; E11.69 Type 2 diabetes mellitus with other specified complication; I10 Essential (primary) hypertension; D50.9 Iron deficiency anemia, unspecified; E66.9 Obesity, unspecified; F32.9 Major depressive disorder, single episode, unspecified; Z79.899 Other long term (current) drug therapy; Z79.4 Long term (current) use of insulin; Z89.612 Acquired absence of left leg above knee; Z89.411 Acquired absence of right great toe; Z80.9 Family history of malignant neoplasm, unspecified
CPT/HCPCS: 01482; 36415; 36430; 71045; 80048; 80053; 80061; 80202; 81001; 82272; 82565; 82803; 82962; 83036; 83605; 83735; 85025; 85027; 85610; 85652; 86850; 86900; 86901; 86920; 87040; 87077; 87086; 87088; 87186; 87493; 88307; 88311; 93005; 93010; 96361; 96365; 96366; 99285; J1170; J1644; J1815; J2250; J2270; J2405; J2543; J2704; J3010; J3370; J3490; J7030; J7050; J7060; L1830; P9016